=== PATIENT | male | born 1945 | race Caucasian/White ===

== ENCOUNTER 2016-12-16 13:40 | Inpatient (IN) | payer BC ==
--- NOTE | ~2016-12-16 | IDS ---
Interim Discharge Summary [facility] [address] [place]. [address] NAME: ZOË DICKINSON : 43 STATUS : ADM IN PAT#: [id number] AGE: 71 ADM/REG DATE : 12/16/16 MR#: [id number] REPORT SERV DATE: 12/27/16 DICTATED BY: LONG RUTHERFORD DATE: 12/27/16 REPORT STATUS : Draft TRANSCRIBED BY: MODL DATE: 12/27/16 ADMISSION DATE: 12/16/2016 DISCHARGE DATE: Interim summary covers 12/25/2016 through 12/27/2016. CHIEF COMPLAINT ON ADMISSION: Shortness of breath. CURRENT HOSPITAL DIAGNOSES: 1. Acute on chronic diastolic heart failure. 2. Acute on chronic hypoxic and hypercarbic respiratory failure. 3. Urinary tract infection, growing GPCs. 4. Hypokalemia. 5. Anemia. 6. Atrial fibrillation. 7. Hypertension. 8. Diabetes. 9. Obstructive sleep apnea. 10.Obesity hypoventilation syndrome. HISTORY OF PRESENT ILLNESS: Please see full H and P by Dr. Toussaint for details regarding initial presentation. HOSPITAL COURSE: Please see interim summary by Dr. Tawny Torres, after transfer out of the ICU. My care of the patient to go over on 12/25/2016. Since 12/25/2016, we have continued to diurese him with an IV Bumex drip today. We are transitioning to q.6 hours IV Bumex. I am going to give him a dose of metolazone. He has diuresed quite a bit with significant weight loss. I will also discontinue his Wills catheter tomorrow morning, starting him on Rocephin for urine culture positive for GPCs. Physical Therapy has been reconsulted after transfer out of ICU and plan likely to rehab. We will check blood work in the morning to monitor electrolytes as well as CBC to follow his anemia. This has been grossly stable. With regard to his hypertension and his atrial fibrillation, he is currently stable on medications. No medication changes have been made. In regard to his diabetes, I have decreased his morning Levemir. I will follow on current medication dosage. Disposition is likely to rehab once diastolic heart failure has been reasonably diuresed. Pulmonary Medicine has been following. Anticipated discharge date two to three days. DNK/MODL Long Rutherford MD Interim Discharge Summary [address] [address] NAME: ZOË DICKINSON : 43 STATUS : ADM IN PAT#: [id number] AGE: 71 ADM/REG DATE : 12/16/16 MR#: [id number] REPORT SERV DATE: 12/27/16 DICTATED BY: LONG RUTHERFORD DATE: 12/27/16 REPORT STATUS : Draft TRANSCRIBED BY: MODL DATE: 12/27/16 / [id number] CC: MD LESLY Thacker CLIFTON R.
--- NOTE | ~2016-12-16 | IDS ---
Interim Discharge Summary [facility] [address] [place]. [address] NAME: ZOË DICKINSON : 43 STATUS : ADM IN PAT#: [id number] AGE: 71 ADM/REG DATE : 12/16/16 MR#: [id number] REPORT SERV DATE: 12/21/16 DICTATED BY: LING PITTS DATE: 12/21/16 REPORT STATUS : Draft TRANSCRIBED BY: MODL DATE: 12/21/16 ADMISSION DATE: 12/16/2016 DISCHARGE DATE: 12/21/2016 DATE OF TRANSFER TO INTERMEDIATE CARE UNIT: 12/21/2016. BRIEF HISTORY OF PRESENT ILLNESS: Mr. Dickinson is a 71-year-old gentleman admitted for shortness of breath. He has an underlying history of diastolic heart dysfunction, obesity, hypoventilation with hypercapnia due to morbid obesity, obstructive sleep apnea with intermittent compliance on home CPAP as well as diabetes, chronic kidney disease, hypertension, dyslipidemia, and COPD. He presented with weight gain, edema, generalized weakness, and hypercapnic respiratory failure. Evidently, he has been hospitalized in the past for similar symptoms. His x-ray on admission, showed bilateral pulmonary edema and he was admitted to the intensive care unit by Dr. Toussaint for diuresis and oxygen support. Of note, he is on 5 L of supplemental oxygen at home at all times and does wear home CPAP. He does have bronchodilator medicines available at home, but is intermittently compliant with those as well. He was moved to the CV ICU where he was treated with BiPAP and diuresis. Oxygen support was weaned over the next few days, and he clinically improved. ACTIVE PROBLEM LIST: Includes: 1. Acute on chronic hypoxemic and hypercapnic respiratory failure. He is oxygen dependent, around 5 L at home and has home CPAP. He has been wearing a BiPAP at night and intermittently throughout the day, and is back on his home flow rate following diuresis. 2. LEYLA/obesity hypoventilation with chronic hypercapnia. He is a chronic retainer baseline and is morbidly obese. 3. Question of COPD. He is on bronchodilators as well as inhaled budesonide with no evidence of bronchospasm presently. 4. Atrial fibrillation with RVR. He is on Eliquis and is rate controlled around 80 at the moment. 5. Diabetes mellitus. He is on a sliding scale insulin and Levemir. Certainly, weight loss would be beneficial. 6. Chronic kidney disease. His BUN and creatinine are slightly up today at 26 and 1.08. Suspect this is a consequence of diuresis. Continue to monitor and avoid nephrotoxins when possible. 7. Diastolic heart failure with an EF of 55%. He is status post diuresis and we will need to continue that on an as-needed basis to avoid volume overload. 8. Hypertension, controlled. His blood pressure has been running in the 140s today. 9. Chronic anemia. Monitor and avoid excessive phlebotomy. He is a full code. He has morning labs ordered for tomorrow, and he is working with Physical Therapy. We will notify the hospitalist navigator of his transfer to the [facility]. He will be picked up by Dr. Grimes tomorrow morning. Please call with questions. WALI/YUDITH Interim Discharge Summary [address] [address] NAME: ZOË DICKINSON : 43 STATUS : ADM IN [facility]#: [id number] AGE: 71 ADM/REG DATE : 12/16/16 MR#: [id number] REPORT SERV DATE: 12/21/16 DICTATED BY: LING PITTS DATE: 12/21/16 REPORT STATUS : Draft TRANSCRIBED BY: YUDITH DATE: 12/21/16 Ling Pitts MD / [id number] CC: Adithya Toussaint IV, M.D.
--- NOTE | ~2016-12-16 | DS ---
Discharge Summary [facility] [address] [place]. [address] NAME: ZOË DICKINSON : 43 STATUS : DIS IN PAT#: [id number] AGE: 71 ADM/REG DATE : 12/16/16 MR#: [id number] REPORT SERV DATE: 12/30/16 DICTATED BY: DATE: REPORT STATUS : Draft TRANSCRIBED BY: MODL DATE: 12/29/16 ADMISSION DATE: 12/16/2016 DISCHARGE DATE: 12/29/2016 DISCHARGE DIAGNOSES: 1. Wiczg-wp-zseteur diastolic heart failure. 2. Atzpm-ti-jlfxwup hypoxic and hypercarbic respiratory failure. 3. Abnormal urinalysis. 4. Atrial fibrillation. 5. Type 2 diabetes mellitus. 6. Hypertension. 7. Obstructive sleep apnea/obesity hypoventilation syndrome. 8. Mildly elevated creatinine. CONSULTATIONS: Patric Beltran PA-C, Pulmonology. PERTINENT TESTS AND PROCEDURES: 1. Serial chest x-rays obtained daily between the dates of 12/16/2016 and 12/26/2016. 12/16/2016 report indicated recurrent severe failure with marked cardiomegaly compared to 11/27/2016 study. 12/26/2016 report indicated enlarged heart. Vascular congestion with interstitial edema, bilateral effusions. Chest is similar to previous studies. 2. The patient had echocardiogram on 11/26/2016 prior to this admission. At that time, ejection fraction was estimated to be 60%. 3. Blood cultures obtained x2 sites on 12/16/2016 and again on 12/24/2016 x2 sites. Final results no growth at four days. 4. Urine culture, urine collected 12/24/2016, final culture result colony count greater than 100,000, organism #1 Enterococcus faecalis group D, organism #2 methicillin- resistant Staph aureus. Per consult with antibiotic stepan and pharmacy, this likely represents colonization secondary to Wills catheter placed for most of this admission. CHIEF COMPLAINT UPON ADMISSION: Weight gain, weakness, increased peripheral edema with orthopnea. HOSPITAL COURSE: Please refer to history and physical dated 12/10/[address] Adithya Toussaint, for complete details pertaining to the patient's initial presentation upon admission and health history. Also refer to interim discharge summary dated 12/21/[address] Tawny Torres for details covering dates of service between 12/17/2016 and 12/21/2016. Please also refer to interim discharge summary dated 12/27/[address] Stu Rutherford for details pertaining to dates of service between 12/21/2016 and 12/27/2016. Briefly, the patient is a 71-year-old male, who presented to the emergency department on 12/16/2016 with complaints of weight gain, increasing weakness, peripheral edema, and orthopnea. It is noteworthy to mention that the patient was hospitalized in the recent past Discharge Summary [address] [address] NAME: ZOË DICKINSON : 43 STATUS : DIS IN PAT#: [id number] AGE: 71 ADM/REG DATE : 12/16/16 MR#: [id number] REPORT SERV DATE: 12/30/16 DICTATED BY: DATE: REPORT STATUS : Draft TRANSCRIBED BY: MODL DATE: 12/29/16 for similar presentation. Initial evaluation included diagnostic imaging to include chest x-ray, which reported bilateral pulmonary infiltrates with hypercapnia, for which the patient was placed on BiPAP. The patient was initially admitted to the CVICU under the jig grinder service and he was eventually transferred to [facility] and then to [facility] on 12/25/2016. 1. Uajnq-zr-cdpjdkk diastolic heart failure. Upon admission, the patient's weight was reported to be increased from his baseline of 320 pounds to 334 pounds. The patient was aggressively diuresed during this admission and on the day of discharge, the patient's weight was stable at 292 pounds. The patient's most recent echocardiogram was 11/26/2016, in which the ejection fraction was reported to be 60%. The patient is now status post aggressive diuresis and will need to continue home dose of torsemide 20 mg p.o. daily to avoid volume overload. 2. Ldrus-co-cewavpn hypoxic/hypercapnic respiratory failure. The patient is 5 L supplemental O2 dependent at home. Throughout this stay, the patient's respiratory status has returned to baseline and he is maintaining oxygen saturations at or above 90% on chronic 5 L. 3. Obstructive sleep apnea/obesity hypoventilation syndrome. Pulmonology was consulted during this admission. The patient has been home CPAP compliant up until this admission; however, with the recent acute onset of chronic hypoxic respiratory failure, the patient will now require BiPAP every bedtime as CPAP is no longer effective in maintaining his respiratory status. The patient will receive BiPAP therapy once he is transferred and discharge to long-term facility and arrangements have been made for this to continue on an outpatient basis once he is discharged home as well. 4. Abnormal UA. The patient initially had a urinalysis that went to reflex culture which indicated greater than 100,000 colonies of MRSA and Enterococcus faecalis group D. The patient has had a Wills catheter replaced during most of this admission. Wills catheter was removed yesterday and the patient is able to void without difficulty. Antibiotic stepan in pharmacy was contacted regarding positive urine culture and it was recommended that no antibiotic therapy be initiated at this time due to likely colonization. The patient had been initially placed on antibiotic prior to culture resulting; however, after discontinuation of antibiotics the patient has continued to do well with no complaints of dysuria, hematuria, or any other clinical signs or symptoms of infection. 5. Atrial fibrillation with RVR. During this admission, the patient's home dose of carvedilol was increased from 6.25 mg p.o. twice daily to 12.5 mg tablet p.o. twice daily. Cardizem CD 240 mg tablet p.o. daily was also added to the patient's home regimen and should be continued upon discharge. 6. Hypertension. The patient's Cozaar 25 mg p.o. daily was initially discontinued upon admission. The patient is now hemodynamically stable and this medication will be continued on an outpatient basis. 7. Type 2 diabetes mellitus. The patient's home dose of metformin should be restarted upon discharge to long-term facility 1000 mg p.o. twice daily. The patient will also continue receiving Levemir 30 units subcu at bedtime and Levemir 10 units subcu every a.m. 8. Mildly elevated creatinine, this is most likely related to recent aggressive diuresis. BUN and creatinine are reported to be 61 and 1.26 today. The patient will need to have Discharge Summary [address] [address] NAME: ZOË DICKINSON : 43 STATUS : DIS IN PAT#: [id number] AGE: 71 ADM/REG DATE : 12/16/16 MR#: [id number] REPORT SERV DATE: 12/30/16 DICTATED BY: DATE: REPORT STATUS : Draft TRANSCRIBED BY: YUDITH DATE: 12/29/16 lab draw for BMP on Tuesday at [facility] to monitor renal function. DISCHARGE CONDITION: At the time of discharge, the patient is hemodynamically stable. DISCHARGE DIET: 1800 calorie ADA diet. DISCHARGE MEDICATIONS: 1. Eliquis 5 mg tablet p.o. twice daily. 2. Coreg 6.25 mg tablet p.o. twice daily, this has been increased during this admission to 12.5 mg tablet p.o. twice daily and the patient should be discharged on this higher dose and followed up as an outpatient. 3. Cardizem CD 240 mg tablet p.o. daily, this is a new medication initiated during this hospitalization. The patient will need to follow up with street sprinkler upon discharge from long-term [facility]. 4. Neurontin 400 mg tablet p.o. twice daily. 5. Lantus 30 units subcu at bedtime. 6. Imdur 60 units p.o. daily, this is also a new medication added to the patient's home regimen during this admission. This medication does need to be continued and the patient needs outpatient followup visit with Cardiology upon return home from [facility]. 7. Protonix 40 mg tablet p.o. before breakfast. 8. Klor-Con 20 mEq p.o. daily. 9. DuoNeb 0.5/3 mL inhaler inhalation solution, 3 mL inhaled every six hours as needed. 10.Tylenol 650 mg p.o. every 6 hours as needed. 11.Glucophage 1000 mg p.o. twice daily. 12.Ultram 50 mg tablet p.o. three times daily as needed. 13.Cozaar 25 mg tablet p.o. daily. 14.DuoNeb inhalation treatment four times daily as needed. 15.Symbicort two puffs inhaled twice daily, 160/4.5 inhaler. 16.Vitamin D3 1000 units p.o. daily. 17.Vitamin B12 1000 mcg p.o. daily. 18.Vitamin B6 50 mg p.o. daily. 19.Demadex 20 mg tablet p.o. daily. 20.Mag-Ox 40 mg tablet p.o. daily. DISCHARGE INSTRUCTIONS: 1. Upon discharge from long-term facility, the patient will need to follow up with primary care within seven days, Dr. Shoemaker. 2. The patient will need to follow up with Dr. Garcia, Cardiology within three to four weeks of discharge from SNF due to recent uqqce-dm-akmlnlo congestive heart failure and recent medication changes made during hospital admission. 3. The patient will need daily weight and a 2 L fluid restriction and to be monitored very closely for signs and symptoms of volume overload. [facility]/MODL Discharge Summary [place] [address] [place]. [address] NAME: ZOË DICKINSON : 43 STATUS : DIS IN PAT#: [id number] AGE: 71 ADM/REG DATE : 12/16/16 MR#: [id number] REPORT SERV DATE: 12/30/16 DICTATED BY: DATE: REPORT STATUS : Draft TRANSCRIBED BY: YUDITH DATE: 12/29/16 Linda Harris, BUSINESS INTELLIGENCE ANALYST-C / [id number] CC: MD Carrington Garcia II
--- NOTE | ~2016-12-16 | HP ---
History And Physical [place] [address] [place]. [address] NAME: ZOË DICKINSON : 43 STATUS : ADM IN [facility]#: [id number] AGE: 71 ADM/REG DATE : 12/16/16 MR#: [id number] REPORT SERV DATE: 12/17/16 DICTATED BY: ENRIQUE TOUSSAINT IV DATE: 12/16/16 REPORT STATUS : Draft TRANSCRIBED BY: YUDITH DATE: 12/16/16 DATE OF ADMISSION: 12/16/2016 History was obtained from the daughter and from the records. Of note, the notes I made for the initial admission was thrown away by staff in the CV ICU when I left the unit for code and so the history was obtained from my memory. HISTORY OF PRESENT ILLNESS: Mr. Dickinson is a 71-year-old male with a history of diastolic heart dysfunction, obesity hypoventilation syndrome with hypercapnia, obstructive sleep apnea on CPAP, diabetes mellitus, chronic kidney disease, hypertension, elevated cholesterol, and listed COPD, who presents with weight gain, weakness, and hypercapnic respiratory failure. The patient was recently hospitalized in November for similar type symptoms. He had a chest x-ray demonstrating bilateral pulmonary infiltrates with elevated BNP. He had adjustments of his cardiac medications to include his diuretics. The patient reportedly was 320 pounds, at the time of discharge that was 334 pounds just prior to his re presentation. He has been weak at home and has had increased peripheral edema with some orthopnea. He is on 5 L supplemental oxygen at all times. He does have CPAP at nighttime with which he is compliant. He has bronchodilator medications at home with which he is not compliant according to family. He had no cough, sputum production, fevers, chills, sweats, hemoptysis, increased urinary urgency, frequency, nausea, vomiting, or diarrhea. He was more somnolent today for which he was brought to the emergency room. There, he was found to have chest x-ray with bilateral pulmonary infiltrates with hypercapnia for which he was placed on BiPAP. The patient has been hypercapnic on previous presentations though this is above normal. There was no increased self administration of medications to include narcotic medications. The patient carries a diagnosis of obstructive sleep apnea of unclear severity. He is reportedly compliant with the CPAP. He is followed at regular intervals by postal service mail processor in [place], [place]. PULMONARY HISTORY: Remarkable for no history of childhood asthma, known obstructive lung disease to the family or previous pneumonia. He has a one to two pack year smoking history as a teenager, none since. 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 They think he is up to date on his immunizations. PAST MEDICAL HISTORY: 1. Diastolic heart dysfunction. 2. Obesity hypoventilation syndrome. 3. LEYLA on CPAP. 4. Listed COPD. 5. Diabetes mellitus. 6. Chronic kidney disease. 7. Hypertension. 8. Elevated cholesterol. PAST SURGICAL HISTORY: The patient had a TURP, had a cholecystectomy complicated by History And Physical [address] [address] NAME: ZOË DICKINSON : 43 STATUS : ADM IN [facility]#: [id number] AGE: 71 ADM/REG DATE : 12/16/16 MR#: [id number] REPORT SERV DATE: 12/17/16 DICTATED BY: ENRIQUE TOUSSAINT IV DATE: 12/16/16 REPORT STATUS : Draft TRANSCRIBED BY: YUDTIH DATE: 12/16/16 pancreatitis, and had cataract surgery. ALLERGIES: NO KNOWN DRUG ALLERGIES. HOME MEDICATIONS: Include Tylenol 325 mg p.r.n., DuoNebs four times a day, Eliquis 5 mg twice a day, Symbicort two puffs twice a day, Coreg 6.25 mg twice a day, vitamins, Neurontin 800 mg three times a day, Lantus 30 units at bedtime, Cozaar 25 mg daily, magnesium 800 mg daily, Glucophage 1000 mg twice a day, Protonix 40 mg daily, potassium 20 mg daily, vitamin B6 daily, Demadex 20 mg daily, Ultram 50 mg three times a day. SOCIAL HISTORY: Remarkable for the tobacco use. The minimal remote tobacco use as above. There is no history of alcohol or illicit drug use. He is and lives with his daughter. FAMILY HISTORY: Remarkable for mother with breast and stomach cancer. One brother who had pancreatitis of sudden and a father who had heart attack. Several family members have diabetes. REVIEW OF SYSTEMS: 14-systems reviewed and pertinent positives as noted above. PHYSICAL EXAMINATION: GENERAL: This is a morbidly obese, elderly male who is minimally responsive though does open his eyes and follows simple commands. VITAL SIGNS: Temperature is 97.8, respiratory rate is 18, pulse is 84, saturations are 100% on 60% FiO2, blood pressure 107/49. HEENT: The patient is normocephalic, atraumatic. Extraocular movements are intact. Pupils do react to light. On quick look of his mouth, he has a Mallampati 3 airway with narrowing of the posterior pharyngeal space. NECK: Trachea is midline. There is no thyromegaly or adenopathy. CHEST: The patient has decreased breath sounds. There are some bibasilar inspiratory crackles. Expiratory phase does seem slightly prolonged with no wheezes or rhonchi noted. CARDIOVASCULAR: Jugular venous distention is difficult to elicit secondary to body habitus. He has a distant regular S1, S2 with frequent premature beats. There is no clear murmur or S3. Carotid upstrokes are 1+ with no obvious bruit. ABDOMEN: Obese, soft. There are hypoactive bowel sounds. There is no palpable hepatosplenomegaly or masses. EXTREMITIES: Demonstrate chronic venous stasis changes with 2+ edema. There is no cyanosis, clubbing, or cords. NEUROLOGIC: The patient opens eyes to stimulation. Otherwise, he sleeps with the BiPAP. LABORATORY DATA: Chest x-ray has a poor quality film demonstrates increased perihilar infiltrate similar to previous studies on presentation, though more recent films have not been shown to be clear. CBC: Hemoglobin 10.7, hematocrit 36.5, platelet count was 270,000, white blood cell count was 12.9. INR is 1.4. Sodium is 138, potassium 4.7, chloride 94, bicarb 36, BUN 24, creatinine 1.37, glucose of 230, magnesium is 1.6. BNP is 174. Troponin is 0.02. Blood gas shows pH 7.21, pCO2 of 91, pO2 of 132. History And Physical [address] [address] NAME: ZOË DICKINSON : 43 STATUS : ADM IN [facility]#: [id number] AGE: 71 ADM/REG DATE : 12/16/16 MR#: [id number] REPORT SERV DATE: 12/17/16 DICTATED BY: ENRIQUE TOUSSAINT IV DATE: 12/16/16 REPORT STATUS : Draft TRANSCRIBED BY: YUDITH DATE: 12/16/16 ASSESSMENT AND PLAN: 1. Respiratory. The patient does not have a clear risk factor for COPD nor a good history; however, will be continued on bronchodilator medications at this time. BiPAP will be changed to 20/8 with a rate of 10. Blood gas will be obtained in the morning. He can be given breaks off as tolerated. BiPAP will be humidified. Chest x-ray will be obtained in the morning as well. 2. Cardiovascular. Lopressor will be given IV as tolerated 2.5 mg. Hydralazine will be given as needed for elevated blood pressure. I will discontinue the Vasotec and nitroglycerin paste. Bumex will be given 1 g every eight hours x3 doses. Troponin will be checked in the morning. EKG will be obtained which is read as AFib, but it seems to be sinus with multi PACs. 3. Renal. We will replace the patient's magnesium with 2 g. We will check phosphate level. We will check follow creatinine with diuresis. 4. Endocrinologic. Levemir will be given 10 units b.i.d. Insulin sliding scale has been ordered. Thyroid functions will be obtained. A.m. cortisol level will be obtained. 5. Neurologic. Precedex will be given as needed to tolerate the BiPAP. Thiamine will be given 200 mg IV. Neurontin dose will be decreased to 400 mg twice a day. B12 and ammonia level will be obtained. We will hold the patient's tramadol. 6. Hematologic. We will continue the Eliquis if he is awake. Lovenox will be given if not. 7. Gastrointestinal. Protonix will be given 40 mg daily. Clear liquid diet when awake to advance as tolerated. Liver panel will be obtained. 8. Infectious Disease. The patient does not have any symptoms consistent with an infectious process. A procalcitonin level will be obtained. Urinalysis will be obtained. I would not provide empiric antibiotics based on the current findings. The patient will be admitted to the CV ICU under the plant operator/shift supervisor service. I did discuss the findings and plan with the daughter. We also discussed wishes concerning resuscitation status. They wish the father be a full code. NM/MODL Enrique Toussaint IV, M.D. / [id number] CC: Enrique Toussaint IV, M.D.
[2016-12-16 12:55] LABS: INSTRUMENT SERIAL # 8087
[2016-12-16 12:56] LABS: ALLENS TEST Pos; BE (BASE EXCESS) 0.2 MEQ/L (0 +/- 2.5); CARBOXYHEMOGLOBIN 1.3 % (0-3); HCO3 (ACTUAL BICARBONATE) 31.4 MEQ/L (23-27); HEMOBLOGIN CONTENT 11.3 G/DL (14-18); METHEMOGLOBIN 0.3 % (0-3); O2 CONTENT 15.1 VOL% (18-24); PCO2 (CO2 TENSION) 95 MMHG (35-45); PO2 (O2 TENSION) 102 MMHG (79-93); SAMPLE Arterial; pH 7.14 (7.37-7.43)
[2016-12-16 13:31] LABS: BASOPHILS 0.2 %; BASOPHILS ABSOLUTE 0.02 10/3/uL (0.0-0.16); EOSINOPHILS 0.9 %; EOSINOPHILS ABSOLUTE 0.11 10/3/uL (0.0-0.53); HEMATOCRIT 36.5 % (40.0-51.0); HEMOGLOBIN 10.7 g/dL (13.6-17.8); IMMATURE GRANULOCYTES 0.6 %; IMMATURE GRANULOCYTES ABSOLUTE 0.08 10/3/uL (0.0-0.11); LYMPHOCYTES 11.7 %; MANUAL DIFF NO %; MEAN CORPUS HGB CONC 29.3 g/dL (32.0-36.0); MEAN CORPUSCULAR HEMOGLOB 25.3 pg (26.0-34.0); MEAN CORPUSCULAR VOLUME 86.3 fL (80-100); MONOCYTES 6.1 %; MONOCYTES ABSOLUTE 0.78 10/3/uL (0.21-1.20); NEUTROPHILS 80.5 %; NEUTROPHILS ABSOLUTE 10.38 10/3/uL (2.02-8.40); PLATELET COUNT 270 10/3/uL (150-400); RED CELL COUNT 4.23 10/6/uL (4.7-6.1); WHITE BLOOD CELLS 12.9 10/3/uL (4.5-10.5)
[~2016-12-16 13:40] MED LIST: AMARYL2 PO; AMARYL4 PO; B1100 PO; B150 PO; COREG12 PO; COREG6 PO; COZ25 PO; CYANO1000T PO; DEMA20 PO; DUONEB INH; ELIQUIS 5 MG TAB5 MG PO; GLUCOPHAGE1000 MG PO; KLOR-CON M2020 MEQ PO; L40 PO; LANTUS SC; LANTUSCART SC; LEVEMIR SC; MAGOX4 PO; MONODOX100 MG PO; NEUR300 PO; NEUR400 PO; NEUR800 PO; P20 PO; PRILO PO; PRIN10 PO; PRIN20 PO; PROTONIX PO; SYMBICORT 160/41 INH INH; T PO; ULTRAM50 PO; VIT B-SIX 50 MG50 MG PO; VITAMIN B; VITAMIN B-1500 MG PO; VITAMIN B-625 MG OR; VITAMIN B-625 MG PO; VITAMIN D1000 UNI1 PO; VITAMIN D31000 UNIT PO; Z-PAK PO; ZANTAC300 MG PO
[2016-12-16 13:45] LABS: INTERNATIONAL NORMAL RATI 1.4 UNITS (-); PARTIAL THROMBO TIME 32.6 SEC (22.5-37.2); PROTIME (NOT ORD) 16.8 SEC (12.0-14.5)
[2016-12-16 13:47] LABS: ALLENS TEST Pos; BE (BASE EXCESS) 5.5 MEQ/L (0 +/- 2.5); BIPAP 22/8 cm.H2O; CARBOXYHEMOGLOBIN 1.5 % (0-3); HCO3 (ACTUAL BICARBONATE) 35.6 MEQ/L (23-27); HEMOBLOGIN CONTENT 10.8 G/DL (14-18); INSTRUMENT SERIAL # 8087; METHEMOGLOBIN 0.3 % (0-3); O2 CONTENT 14.9 VOL% (18-24); PCO2 (CO2 TENSION) 91 MMHG (35-45); PO2 (O2 TENSION) 132 MMHG (79-93); SAMPLE Arterial; pH 7.21 (7.37-7.43)
[2016-12-16 13:52] LABS: BUN (BLOOD UREA NITROGEN) 24 MG/DL (6-23); CALCIUM, SERUM 8.5 MG/DL (8.5-10.4); CHEST PAIN PROFILE TAT 0 Hrs 27 Mins; CHLORIDE, SERUM 94 MMOL/L (96-112); CO2 (CARBON DIOXIDE) 36 MMOL/L (24-34); CREATININE 1.37 MG/DL (0.70-1.30); GFR AFRICAN AMERICAN 59 ML/MIN (>=60); GFR NON AFRICAN AMERICAN 51 ML/MIN (>=60); GLUCOSE, SERUM 230 MG/DL (60-99); POTASSIUM, SERUM 4.7 MMOL/L (3.5-5.3); SODIUM, SERUM 138 MMOL/L (135-148); TROPONIN I <0.02 NG/ML (<0.05)
[2016-12-16 21:53] LABS: WBC (NOT ORDERED) (RFLEX) 0 (0-5)
[2016-12-16 21:56] LABS: PROCALCITONIN 0.06 ng/mL (<0.5)
[2016-12-16 22:11] LABS: ASCORBIC ACID (UR NOT ORDER) NEG (NEG); BILIRUBIN, URINE NEGATIVE (NEG); KETONE, URINE NEGATIVE (NEG); LEUKOCYTE ESTERASE(NOT OR NEG (NEG)
[2016-12-16 22:25] LABS: AMPHETAMINES (NOT ORD) NEG (NEG); BARBITURATES (NOT ORDERED NEG (NEG); BENZODIAZEPINES (NOT ORD) NEG (NEG); CANNABINOIDS (THC) NEG (NEG); COCAINE (NOT ORDERED) NEG (NEG); OPIATES NEG (NEG); PHENCYCLIDINE(PCP) NEG (NEG); TRICYCLICS NEG (NEG)
[2016-12-16 22:34] LABS: FREE T4 1.21 NG/DL (0.76-1.46); PHOSPHORUS, SERUM 4.6 MG/DL (2.5-4.5)
[2016-12-16 22:36] LABS: FOLATE 18.3 NG/ML (>5.2)
[2016-12-17 04:41] LABS: BE (BASE EXCESS) 10.2 MEQ/L (0 +/- 2.5); CARBOXYHEMOGLOBIN 0.7 % (0-3); HCO3 (ACTUAL BICARBONATE) 37.7 MEQ/L (23-27); HEMOBLOGIN CONTENT 10.2 G/DL (14-18); INSTRUMENT SERIAL # 11843; METHEMOGLOBIN 0.5 % (0-3); O2 CONTENT 12.7 VOL% (18-24); PCO2 (CO2 TENSION) 69 MMHG (35-45); PO2 (O2 TENSION) 61 MMHG (79-93); pH 7.36 (7.37-7.43)
[2016-12-17 04:42] LABS: ALLENS TEST Pos; BIPAP 20/8 cm.H2O; OPERATOR ID 32193; SAMPLE Arterial
[2016-12-17 04:46] LABS: BASOPHILS 0.1 %; BASOPHILS ABSOLUTE 0.01 10/3/uL (0.0-0.16); EOSINOPHILS 1.5 %; EOSINOPHILS ABSOLUTE 0.14 10/3/uL (0.0-0.53); HEMOGLOBIN 8.8 g/dL (13.6-17.8); IMMATURE GRANULOCYTES 0.1 %; IMMATURE GRANULOCYTES ABSOLUTE 0.01 10/3/uL (0.0-0.11); LYMPHOCYTES 13.1 %; LYMPHOCYTES ABSOLUTE 1.19 10/3/uL (0.67-4.30); MEAN CORPUS HGB CONC 29.1 g/dL (32.0-36.0); MEAN CORPUSCULAR HEMOGLOB 24.2 pg (26.0-34.0); MEAN PLATELET VOLUME 9.8 fL (9.2-13.0); MONOCYTES 10.9 %; MONOCYTES ABSOLUTE 0.99 10/3/uL (0.21-1.20); NEUTROPHILS 74.3 %; NEUTROPHILS ABSOLUTE 6.74 10/3/uL (2.02-8.40); PLATELET COUNT 210 10/3/uL (150-400); RBC DISTRIBUTION WIDTH 17.2 % (12.0-16.0); RED CELL COUNT 3.63 10/6/uL (4.7-6.1); WHITE BLOOD CELLS 9.1 10/3/uL (4.5-10.5)
[2016-12-17 04:51] LABS: HEMATOCRIT 30.2 % (40.0-51.0); MANUAL DIFF NO %; MEAN CORPUSCULAR VOLUME 83.2 fL (80-100)
[2016-12-17 04:57] LABS: ALBUMIN 2.9 G/DL (3.5-5.0); BUN (BLOOD UREA NITROGEN) 27 MG/DL (6-23); CALCIUM, SERUM 8.4 MG/DL (8.5-10.4); CHLORIDE, SERUM 97 MMOL/L (96-112); CO2 (CARBON DIOXIDE) 37 MMOL/L (24-34); CREATININE 1.35 MG/DL (0.70-1.30); DIRECT BILIRUBIN 0.2 MG/DL (0.0-0.4); GFR AFRICAN AMERICAN 60 ML/MIN (>=60); GFR NON AFRICAN AMERICAN 52 ML/MIN (>=60); INDIRECT BILIRUBIN(NOT ORDER) 0.6 MG/DL (0.1-0.9); POTASSIUM, SERUM 4.1 MMOL/L (3.5-5.3); SGOT(AST) 16 U/L (5-40); SGPT(ALT) 21 U/L (5-65); SODIUM, SERUM 141 MMOL/L (135-148); TOTAL BILIRUBIN 0.8 MG/DL (0-1.2); TOTAL PROTEIN 6.5 G/DL (6.0-8.5)
[2016-12-17 05:01] LABS: ALLENS TEST Pos; BE (BASE EXCESS) 8.7 MEQ/L (0 +/- 2.5); BIPAP 20/8 cm.H2O; CARBOXYHEMOGLOBIN 0.6 % (0-3); HEMOBLOGIN CONTENT 9.9 G/DL (14-18); INSTRUMENT SERIAL # 11843; METHEMOGLOBIN 0.6 % (0-3); O2 CONTENT 13.1 VOL% (18-24); OPERATOR ID 32193; PCO2 (CO2 TENSION) 67 MMHG (35-45); PO2 (O2 TENSION) 84 MMHG (79-93); SAMPLE Arterial; pH 7.35 (7.37-7.43)
[2016-12-17 05:06] LABS: ALKALINE PHOSPHATASE 69 U/L (45-117); GLUCOSE, SERUM 41 MG/DL (60-99)
[2016-12-18 04:16] LABS: BASOPHILS 0.1 %; BASOPHILS ABSOLUTE 0.01 10/3/uL (0.0-0.16); EOSINOPHILS 2.1 %; EOSINOPHILS ABSOLUTE 0.19 10/3/uL (0.0-0.53); HEMOGLOBIN 9.1 g/dL (13.6-17.8); IMMATURE GRANULOCYTES 0.2 %; IMMATURE GRANULOCYTES ABSOLUTE 0.02 10/3/uL (0.0-0.11); LYMPHOCYTES 14.1 %; LYMPHOCYTES ABSOLUTE 1.28 10/3/uL (0.67-4.30); MEAN CORPUS HGB CONC 29.4 g/dL (32.0-36.0); MEAN CORPUSCULAR HEMOGLOB 24.4 pg (26.0-34.0); MEAN CORPUSCULAR VOLUME 83.1 fL (80-100); MEAN PLATELET VOLUME 10.1 fL (9.2-13.0); MONOCYTES 7.6 %; MONOCYTES ABSOLUTE 0.69 10/3/uL (0.21-1.20); NEUTROPHILS 75.9 %; PLATELET COUNT 222 10/3/uL (150-400); RED CELL COUNT 3.73 10/6/uL (4.7-6.1); WHITE BLOOD CELLS 9.1 10/3/uL (4.5-10.5)
[2016-12-18 04:17] LABS: MANUAL DIFF NO %
[2016-12-18 04:18] LABS: BUN (BLOOD UREA NITROGEN) 29 MG/DL (6-23); CALCIUM, SERUM 8.7 MG/DL (8.5-10.4); CHLORIDE, SERUM 96 MMOL/L (96-112); CO2 (CARBON DIOXIDE) 36 MMOL/L (24-34); GFR AFRICAN AMERICAN 77 ML/MIN (>=60); GFR NON AFRICAN AMERICAN 67 ML/MIN (>=60); POTASSIUM, SERUM 4.4 MMOL/L (3.5-5.3); SODIUM, SERUM 139 MMOL/L (135-148)
[2016-12-18 04:19] LABS: GLUCOSE, SERUM 153 MG/DL (60-99); PHOSPHORUS, SERUM 2.7 MG/DL (2.5-4.5)
[2016-12-18 11:44] LABS: CALCIUM, SERUM 9.2 MG/DL (8.5-10.4); CHLORIDE, SERUM 93 MMOL/L (96-112); CO2 (CARBON DIOXIDE) 37 MMOL/L (24-34); CREATININE 1.04 MG/DL (0.70-1.30); GFR AFRICAN AMERICAN 83 ML/MIN (>=60); GFR NON AFRICAN AMERICAN 71 ML/MIN (>=60); POTASSIUM, SERUM 4.3 MMOL/L (3.5-5.3); SODIUM, SERUM 138 MMOL/L (135-148)
[2016-12-18 11:48] LABS: BUN (BLOOD UREA NITROGEN) 25 MG/DL (6-23); GLUCOSE, SERUM 253 MG/DL (60-99)
[2016-12-19 04:22] LABS: BASOPHILS 0.1 %; BASOPHILS ABSOLUTE 0.01 10/3/uL (0.0-0.16); EOSINOPHILS 1.3 %; EOSINOPHILS ABSOLUTE 0.12 10/3/uL (0.0-0.53); HEMATOCRIT 31.4 % (40.0-51.0); HEMOGLOBIN 9.5 g/dL (13.6-17.8); IMMATURE GRANULOCYTES 0.3 %; IMMATURE GRANULOCYTES ABSOLUTE 0.03 10/3/uL (0.0-0.11); LYMPHOCYTES 11.6 %; LYMPHOCYTES ABSOLUTE 1.05 10/3/uL (0.67-4.30); MEAN CORPUS HGB CONC 30.3 g/dL (32.0-36.0); MEAN CORPUSCULAR HEMOGLOB 25.3 pg (26.0-34.0); MEAN CORPUSCULAR VOLUME 83.7 fL (80-100); MEAN PLATELET VOLUME 10.1 fL (9.2-13.0); MONOCYTES 7.4 %; MONOCYTES ABSOLUTE 0.67 10/3/uL (0.21-1.20); NEUTROPHILS 79.3 %; NEUTROPHILS ABSOLUTE 7.14 10/3/uL (2.02-8.40); PLATELET COUNT 232 10/3/uL (150-400); RBC DISTRIBUTION WIDTH 17.2 % (12.0-16.0); RED CELL COUNT 3.75 10/6/uL (4.7-6.1)
[2016-12-19 04:25] LABS: MANUAL DIFF NO %
[2016-12-19 04:26] LABS: BUN (BLOOD UREA NITROGEN) 23 MG/DL (6-23); CALCIUM, SERUM 8.8 MG/DL (8.5-10.4); CHLORIDE, SERUM 95 MMOL/L (96-112); CO2 (CARBON DIOXIDE) 37 MMOL/L (24-34); CREATININE 0.84 MG/DL (0.70-1.30); GFR AFRICAN AMERICAN 101 ML/MIN (>=60); GFR NON AFRICAN AMERICAN 87 ML/MIN (>=60); POTASSIUM, SERUM 3.9 MMOL/L (3.5-5.3); SODIUM, SERUM 139 MMOL/L (135-148)
[2016-12-19 04:27] LABS: GLUCOSE, SERUM 167 MG/DL (60-99)
[2016-12-20 04:44] LABS: BASOPHILS 0.2 %; BASOPHILS ABSOLUTE 0.02 10/3/uL (0.0-0.16); EOSINOPHILS 2.4 %; EOSINOPHILS ABSOLUTE 0.26 10/3/uL (0.0-0.53); HEMATOCRIT 33.6 % (40.0-51.0); HEMOGLOBIN 10.1 g/dL (13.6-17.8); IMMATURE GRANULOCYTES 0.3 %; IMMATURE GRANULOCYTES ABSOLUTE 0.03 10/3/uL (0.0-0.11); LYMPHOCYTES 12.9 %; LYMPHOCYTES ABSOLUTE 1.41 10/3/uL (0.67-4.30); MEAN CORPUS HGB CONC 30.1 g/dL (32.0-36.0); MEAN CORPUSCULAR HEMOGLOB 25.4 pg (26.0-34.0); MEAN CORPUSCULAR VOLUME 84.4 fL (80-100); MEAN PLATELET VOLUME 9.7 fL (9.2-13.0); NEUTROPHILS 74.2 %; NEUTROPHILS ABSOLUTE 8.15 10/3/uL (2.02-8.40); PLATELET COUNT 237 10/3/uL (150-400); RBC DISTRIBUTION WIDTH 16.9 % (12.0-16.0); RED CELL COUNT 3.98 10/6/uL (4.7-6.1)
[2016-12-20 04:49] LABS: MANUAL DIFF NO %
[2016-12-20 04:59] LABS: BUN (BLOOD UREA NITROGEN) 26 MG/DL (6-23); CALCIUM, SERUM 9.2 MG/DL (8.5-10.4); CHLORIDE, SERUM 92 MMOL/L (96-112); CO2 (CARBON DIOXIDE) 38 MMOL/L (24-34); CREATININE 0.89 MG/DL (0.70-1.30); GFR AFRICAN AMERICAN 99 ML/MIN (>=60); GFR NON AFRICAN AMERICAN 85 ML/MIN (>=60); GLUCOSE, SERUM 156 MG/DL (60-99); POTASSIUM, SERUM 4.2 MMOL/L (3.5-5.3); SODIUM, SERUM 136 MMOL/L (135-148)
[2016-12-20 15:42] LABS: ASCORBIC ACID (UR NOT ORDER) NEG (NEG); BILIRUBIN, URINE NEGATIVE (NEG); KETONE, URINE NEGATIVE (NEG); LEUKOCYTE ESTERASE(NOT OR MOD (NEG); WBC (NOT ORDERED) (RFLEX) 3 (0-5)
[2016-12-21 03:25] LABS: ALLENS TEST Pos; BE (BASE EXCESS) 11.4 MEQ/L (0 +/- 2.5); BIPAP 20/8 cm.H2O; CARBOXYHEMOGLOBIN 0.6 % (0-3); HCO3 (ACTUAL BICARBONATE) 38.8 MEQ/L (23-27); HEMOBLOGIN CONTENT 10.5 G/DL (14-18); INSTRUMENT SERIAL # 11843; METHEMOGLOBIN 0.5 % (0-3); O2 CONTENT 13.7 VOL% (18-24); OPERATOR ID 17370; PCO2 (CO2 TENSION) 68 MMHG (35-45); PO2 (O2 TENSION) 74 MMHG (79-93); SAMPLE Arterial; pH 7.37 (7.37-7.43)
[2016-12-21 04:11] LABS: HEMATOCRIT 31.4 % (40.0-51.0); HEMOGLOBIN 9.4 g/dL (13.6-17.8); MEAN CORPUS HGB CONC 29.9 g/dL (32.0-36.0); MEAN CORPUSCULAR HEMOGLOB 25.2 pg (26.0-34.0); MEAN CORPUSCULAR VOLUME 84.2 fL (80-100); PLATELET COUNT 232 10/3/uL (150-400); RBC DISTRIBUTION WIDTH 16.9 % (12.0-16.0); RED CELL COUNT 3.73 10/6/uL (4.7-6.1); WHITE BLOOD CELLS 9.2 10/3/uL (4.5-10.5)
[2016-12-21 04:12] LABS: MANUAL DIFF YES %
[2016-12-21 04:18] LABS: BUN (BLOOD UREA NITROGEN) 26 MG/DL (6-23); CALCIUM, SERUM 8.8 MG/DL (8.5-10.4); CHLORIDE, SERUM 92 MMOL/L (96-112); CO2 (CARBON DIOXIDE) 38 MMOL/L (24-34); CREATININE 1.08 MG/DL (0.70-1.30); GFR AFRICAN AMERICAN 79 ML/MIN (>=60); GFR NON AFRICAN AMERICAN 68 ML/MIN (>=60); GLUCOSE, SERUM 159 MG/DL (60-99); POTASSIUM, SERUM 3.9 MMOL/L (3.5-5.3); SODIUM, SERUM 138 MMOL/L (135-148)
[2016-12-21 04:24] LABS: PHOSPHORUS, SERUM 3.7 MG/DL (2.5-4.5)
[2016-12-21 04:39] LABS: HYPOCHROMIA 1+ (3-10/OIF) (0-2/OIF); LYMPHOCYTES 16 %; LYMPHOCYTES ABSOLUTE (CALC) 1.47 10/3/uL (0.67-4.30); MONOCYTES 10 %; MONOCYTES ABSOLUTE (CALC) 0.92 10/3/uL (0.21-1.20); NEUTROPHILS ABSOLUTE (CALC) 6.81 10/3/uL (2.02-8.40); PLATELET ESTIMATE ADQ (ADEQUATE); SEGMENTED NEUTROPHIL (0) 74 %; TOTAL NUCLEATED CELLS 100
[2016-12-21 15:07] LABS: HEMATOCRIT 32.8 % (40.0-51.0); HEMOGLOBIN 9.8 g/dL (13.6-17.8)
[2016-12-22 05:50] LABS: BASOPHILS 0.1 %; BASOPHILS ABSOLUTE 0.01 10/3/uL (0.0-0.16); EOSINOPHILS 2.4 %; EOSINOPHILS ABSOLUTE 0.22 10/3/uL (0.0-0.53); HEMATOCRIT 31.4 % (40.0-51.0); HEMOGLOBIN 9.5 g/dL (13.6-17.8); IMMATURE GRANULOCYTES 0.3 %; IMMATURE GRANULOCYTES ABSOLUTE 0.03 10/3/uL (0.0-0.11); LYMPHOCYTES 13.9 %; LYMPHOCYTES ABSOLUTE 1.27 10/3/uL (0.67-4.30); MEAN CORPUS HGB CONC 30.3 g/dL (32.0-36.0); MEAN CORPUSCULAR HEMOGLOB 25.3 pg (26.0-34.0); MEAN CORPUSCULAR VOLUME 83.7 fL (80-100); MEAN PLATELET VOLUME 9.4 fL (9.2-13.0); MONOCYTES 10.4 %; MONOCYTES ABSOLUTE 0.95 10/3/uL (0.21-1.20); NEUTROPHILS 72.9 %; NEUTROPHILS ABSOLUTE 6.63 10/3/uL (2.02-8.40); PLATELET COUNT 195 10/3/uL (150-400); RED CELL COUNT 3.75 10/6/uL (4.7-6.1); WHITE BLOOD CELLS 9.1 10/3/uL (4.5-10.5)
[2016-12-22 05:51] LABS: MANUAL DIFF NO %
[2016-12-22 06:02] LABS: ALBUMIN 3.4 G/DL (3.5-5.0); BUN (BLOOD UREA NITROGEN) 25 MG/DL (6-23); CHLORIDE, SERUM 95 MMOL/L (96-112); CO2 (CARBON DIOXIDE) 37 MMOL/L (24-34); GFR AFRICAN AMERICAN 87 ML/MIN (>=60); GFR NON AFRICAN AMERICAN 75 ML/MIN (>=60); GLUCOSE, SERUM 147 MG/DL (60-99); PHOSPHORUS, SERUM 3.5 MG/DL (2.5-4.5); POTASSIUM, SERUM 3.6 MMOL/L (3.5-5.3); SODIUM, SERUM 138 MMOL/L (135-148)
[2016-12-23 06:07] LABS: BASOPHILS 0.2 %; BASOPHILS ABSOLUTE 0.02 10/3/uL (0.0-0.16); EOSINOPHILS 1.9 %; EOSINOPHILS ABSOLUTE 0.19 10/3/uL (0.0-0.53); HEMOGLOBIN 9.1 g/dL (13.6-17.8); IMMATURE GRANULOCYTES 0.3 %; IMMATURE GRANULOCYTES ABSOLUTE 0.03 10/3/uL (0.0-0.11); LYMPHOCYTES 10.1 %; MEAN CORPUS HGB CONC 30.3 g/dL (32.0-36.0); MEAN CORPUSCULAR HEMOGLOB 24.6 pg (26.0-34.0); MEAN PLATELET VOLUME 9.9 fL (9.2-13.0); MONOCYTES 10.5 %; MONOCYTES ABSOLUTE 1.04 10/3/uL (0.21-1.20); NEUTROPHILS ABSOLUTE 7.64 10/3/uL (2.02-8.40); PLATELET COUNT 204 10/3/uL (150-400); WHITE BLOOD CELLS 9.9 10/3/uL (4.5-10.5)
[2016-12-23 06:17] LABS: MANUAL DIFF NO %; MEAN CORPUSCULAR VOLUME 81.1 fL (80-100)
[2016-12-23 06:19] LABS: BUN (BLOOD UREA NITROGEN) 24 MG/DL (6-23); CALCIUM, SERUM 8.8 MG/DL (8.5-10.4); CHLORIDE, SERUM 94 MMOL/L (96-112); CO2 (CARBON DIOXIDE) 32 MMOL/L (24-34); CREATININE 0.89 MG/DL (0.70-1.30); GFR AFRICAN AMERICAN 99 ML/MIN (>=60); GFR NON AFRICAN AMERICAN 85 ML/MIN (>=60); GLUCOSE, SERUM 186 MG/DL (60-99); PHOSPHORUS, SERUM 3.6 MG/DL (2.5-4.5); POTASSIUM, SERUM 4.1 MMOL/L (3.5-5.3); SODIUM, SERUM 137 MMOL/L (135-148)
[2016-12-23 11:12] LABS: BE (BASE EXCESS) 9.6 MEQ/L (0 +/- 2.5); BIPAP 20/8 cm.H2O; CARBOXYHEMOGLOBIN 0.5 % (0-3); HEMOBLOGIN CONTENT 10.9 G/DL (14-18); INSTRUMENT SERIAL # 35151; METHEMOGLOBIN 0.6 % (0-3); O2 CONTENT 14.8 VOL% (18-24); PCO2 (CO2 TENSION) 58 MMHG (35-45); PO2 (O2 TENSION) 93 MMHG (79-93); SAMPLE Arterial; pH 7.41 (7.37-7.43)
[2016-12-24 04:40] LABS: BUN (BLOOD UREA NITROGEN) 25 MG/DL (6-23); CHLORIDE, SERUM 92 MMOL/L (96-112); CREATININE 1.05 MG/DL (0.70-1.30); GFR AFRICAN AMERICAN 82 ML/MIN (>=60); GFR NON AFRICAN AMERICAN 71 ML/MIN (>=60); PHOSPHORUS, SERUM 3.5 MG/DL (2.5-4.5); POTASSIUM, SERUM 3.6 MMOL/L (3.5-5.3); SODIUM, SERUM 139 MMOL/L (135-148)
[2016-12-24 04:43] LABS: CO2 (CARBON DIOXIDE) 37 MMOL/L (24-34); GLUCOSE, SERUM 142 MG/DL (60-99)
[2016-12-24 05:22] LABS: BASOPHILS 0.2 %; BASOPHILS ABSOLUTE 0.03 10/3/uL (0.0-0.16); EOSINOPHILS 0.6 %; EOSINOPHILS ABSOLUTE 0.11 10/3/uL (0.0-0.53); HEMOGLOBIN 10.3 g/dL (13.6-17.8); IMMATURE GRANULOCYTES 0.4 %; IMMATURE GRANULOCYTES ABSOLUTE 0.07 10/3/uL (0.0-0.11); LYMPHOCYTES 8.3 %; LYMPHOCYTES ABSOLUTE 1.46 10/3/uL (0.67-4.30); MEAN CORPUS HGB CONC 29.8 g/dL (32.0-36.0); MEAN CORPUSCULAR HEMOGLOB 25.1 pg (26.0-34.0); MONOCYTES ABSOLUTE 0.88 10/3/uL (0.21-1.20); NEUTROPHILS 85.5 %; NEUTROPHILS ABSOLUTE 14.99 10/3/uL (2.02-8.40); NUCLEATED RED BLOOD CELLS 0.2 /100WBC (0-0); PLATELET COUNT 240 10/3/uL (150-400); RBC DISTRIBUTION WIDTH 16.9 % (12.0-16.0); RED CELL COUNT 4.11 10/6/uL (4.7-6.1)
[2016-12-24 05:31] LABS: HEMATOCRIT 34.6 % (40.0-51.0); MANUAL DIFF NO %; MEAN CORPUSCULAR VOLUME 84.2 fL (80-100); WHITE BLOOD CELLS 17.5 10/3/uL (4.5-10.5)
[2016-12-24 20:21] LABS: ASCORBIC ACID (UR NOT ORDER) NEG (NEG); BILIRUBIN, URINE NEGATIVE (NEG); KETONE, URINE NEGATIVE (NEG); LEUKOCYTE ESTERASE(NOT OR LARGE (NEG); WBC (NOT ORDERED) (RFLEX) 42 (0-5)
[2016-12-25 05:17] LABS: BASOPHILS 0.1 %; BASOPHILS ABSOLUTE 0.02 10/3/uL (0.0-0.16); EOSINOPHILS 1.1 %; EOSINOPHILS ABSOLUTE 0.17 10/3/uL (0.0-0.53); HEMATOCRIT 32.5 % (40.0-51.0); HEMOGLOBIN 9.8 g/dL (13.6-17.8); IMMATURE GRANULOCYTES 0.3 %; IMMATURE GRANULOCYTES ABSOLUTE 0.05 10/3/uL (0.0-0.11); LYMPHOCYTES 7.6 %; LYMPHOCYTES ABSOLUTE 1.13 10/3/uL (0.67-4.30); MEAN CORPUS HGB CONC 30.2 g/dL (32.0-36.0); MEAN CORPUSCULAR HEMOGLOB 25.4 pg (26.0-34.0); MEAN CORPUSCULAR VOLUME 84.2 fL (80-100); MEAN PLATELET VOLUME 10.3 fL (9.2-13.0); MONOCYTES 10.2 %; MONOCYTES ABSOLUTE 1.51 10/3/uL (0.21-1.20); NEUTROPHILS 80.7 %; NEUTROPHILS ABSOLUTE 11.99 10/3/uL (2.02-8.40); PLATELET COUNT 232 10/3/uL (150-400); RBC DISTRIBUTION WIDTH 16.7 % (12.0-16.0); RED CELL COUNT 3.86 10/6/uL (4.7-6.1); WHITE BLOOD CELLS 14.9 10/3/uL (4.5-10.5)
[2016-12-25 05:19] LABS: MANUAL DIFF NO %
[2016-12-25 05:33] LABS: BUN (BLOOD UREA NITROGEN) 30 MG/DL (6-23); CALCIUM, SERUM 8.6 MG/DL (8.5-10.4); CHLORIDE, SERUM 91 MMOL/L (96-112); CO2 (CARBON DIOXIDE) 40 MMOL/L (24-34); CREATININE 1.13 MG/DL (0.70-1.30); GFR AFRICAN AMERICAN 75 ML/MIN (>=60); GFR NON AFRICAN AMERICAN 65 ML/MIN (>=60); GLUCOSE, SERUM 135 MG/DL (60-99); PHOSPHORUS, SERUM 4.2 MG/DL (2.5-4.5); POTASSIUM, SERUM 3.5 MMOL/L (3.5-5.3); SODIUM, SERUM 139 MMOL/L (135-148)
[2016-12-26 04:36] LABS: BASOPHILS 0.1 %; BASOPHILS ABSOLUTE 0.02 10/3/uL (0.0-0.16); EOSINOPHILS 1.6 %; EOSINOPHILS ABSOLUTE 0.25 10/3/uL (0.0-0.53); HEMATOCRIT 35.2 % (40.0-51.0); HEMOGLOBIN 10.8 g/dL (13.6-17.8); IMMATURE GRANULOCYTES 0.3 %; IMMATURE GRANULOCYTES ABSOLUTE 0.05 10/3/uL (0.0-0.11); LYMPHOCYTES 8.5 %; LYMPHOCYTES ABSOLUTE 1.31 10/3/uL (0.67-4.30); MEAN CORPUS HGB CONC 30.7 g/dL (32.0-36.0); MEAN CORPUSCULAR HEMOGLOB 25.7 pg (26.0-34.0); MEAN CORPUSCULAR VOLUME 83.6 fL (80-100); MEAN PLATELET VOLUME 9.9 fL (9.2-13.0); MONOCYTES ABSOLUTE 1.39 10/3/uL (0.21-1.20); NEUTROPHILS 80.5 %; NEUTROPHILS ABSOLUTE 12.35 10/3/uL (2.02-8.40); PLATELET COUNT 223 10/3/uL (150-400); RBC DISTRIBUTION WIDTH 16.4 % (12.0-16.0); RED CELL COUNT 4.21 10/6/uL (4.7-6.1); WHITE BLOOD CELLS 15.4 10/3/uL (4.5-10.5)
[2016-12-26 04:37] LABS: MANUAL DIFF NO %
[2016-12-26 04:50] LABS: CALCIUM, SERUM 8.8 MG/DL (8.5-10.4); CHLORIDE, SERUM 91 MMOL/L (96-112); CO2 (CARBON DIOXIDE) 40 MMOL/L (24-34); CREATININE 1.08 MG/DL (0.70-1.30); GFR AFRICAN AMERICAN 79 ML/MIN (>=60); GFR NON AFRICAN AMERICAN 68 ML/MIN (>=60); POTASSIUM, SERUM 3.5 MMOL/L (3.5-5.3); SODIUM, SERUM 140 MMOL/L (135-148)
[2016-12-26 04:52] LABS: BUN (BLOOD UREA NITROGEN) 36 MG/DL (6-23); GLUCOSE, SERUM 84 MG/DL (60-99)
[2016-12-27 12:22] LABS: BUN (BLOOD UREA NITROGEN) 53 MG/DL (6-23); CALCIUM, SERUM 9.1 MG/DL (8.5-10.4); CHLORIDE, SERUM 90 MMOL/L (96-112); CO2 (CARBON DIOXIDE) 39 MMOL/L (24-34); CREATININE 1.29 MG/DL (0.70-1.30); GFR AFRICAN AMERICAN 64 ML/MIN (>=60); GFR NON AFRICAN AMERICAN 55 ML/MIN (>=60); GLUCOSE, SERUM 220 MG/DL (60-99); POTASSIUM, SERUM 4.4 MMOL/L (3.5-5.3); SODIUM, SERUM 137 MMOL/L (135-148)
[2016-12-28 03:49] LABS: BASOPHILS 0.1 %; BASOPHILS ABSOLUTE 0.02 10/3/uL (0.0-0.16); EOSINOPHILS 3.1 %; EOSINOPHILS ABSOLUTE 0.42 10/3/uL (0.0-0.53); HEMATOCRIT 35.6 % (40.0-51.0); HEMOGLOBIN 10.9 g/dL (13.6-17.8); IMMATURE GRANULOCYTES 0.5 %; IMMATURE GRANULOCYTES ABSOLUTE 0.07 10/3/uL (0.0-0.11); LYMPHOCYTES 11.8 %; LYMPHOCYTES ABSOLUTE 1.61 10/3/uL (0.67-4.30); MEAN CORPUS HGB CONC 30.6 g/dL (32.0-36.0); MEAN CORPUSCULAR HEMOGLOB 25.2 pg (26.0-34.0); MEAN CORPUSCULAR VOLUME 82.2 fL (80-100); MEAN PLATELET VOLUME 9.8 fL (9.2-13.0); MONOCYTES 10.2 %; MONOCYTES ABSOLUTE 1.39 10/3/uL (0.21-1.20); NEUTROPHILS 74.3 %; NEUTROPHILS ABSOLUTE 10.17 10/3/uL (2.02-8.40); PLATELET COUNT 236 10/3/uL (150-400); RBC DISTRIBUTION WIDTH 15.9 % (12.0-16.0); RED CELL COUNT 4.33 10/6/uL (4.7-6.1); WHITE BLOOD CELLS 13.7 10/3/uL (4.5-10.5)
[2016-12-28 03:52] LABS: MANUAL DIFF NO %
[2016-12-28 04:16] LABS: ALBUMIN 3.1 G/DL (3.5-5.0); CHLORIDE, SERUM 88 MMOL/L (96-112); CREATININE 1.29 MG/DL (0.70-1.30); GFR AFRICAN AMERICAN 64 ML/MIN (>=60); GFR NON AFRICAN AMERICAN 55 ML/MIN (>=60); PHOSPHORUS, SERUM 4.5 MG/DL (2.5-4.5); SODIUM, SERUM 138 MMOL/L (135-148)
[2016-12-28 04:32] LABS: BUN (BLOOD UREA NITROGEN) 58 MG/DL (6-23); CO2 (CARBON DIOXIDE) 44 MMOL/L (24-34); GLUCOSE, SERUM 144 MG/DL (60-99); POTASSIUM, SERUM 3.4 MMOL/L (3.5-5.3)
[2016-12-29 05:16] LABS: BASOPHILS 0.2 %; BASOPHILS ABSOLUTE 0.02 10/3/uL (0.0-0.16); EOSINOPHILS ABSOLUTE 0.35 10/3/uL (0.0-0.53); HEMATOCRIT 37.8 % (40.0-51.0); HEMOGLOBIN 11.4 g/dL (13.6-17.8); IMMATURE GRANULOCYTES 0.8 %; IMMATURE GRANULOCYTES ABSOLUTE 0.09 10/3/uL (0.0-0.11); LYMPHOCYTES 11.8 %; LYMPHOCYTES ABSOLUTE 1.39 10/3/uL (0.67-4.30); MEAN CORPUS HGB CONC 30.2 g/dL (32.0-36.0); MEAN CORPUSCULAR VOLUME 82.9 fL (80-100); MONOCYTES ABSOLUTE 1.06 10/3/uL (0.21-1.20); NEUTROPHILS 75.2 %; NEUTROPHILS ABSOLUTE 8.86 10/3/uL (2.02-8.40); PLATELET COUNT 237 10/3/uL (150-400); RBC DISTRIBUTION WIDTH 15.8 % (12.0-16.0); RED CELL COUNT 4.56 10/6/uL (4.7-6.1); WHITE BLOOD CELLS 11.8 10/3/uL (4.5-10.5)
[2016-12-29 05:17] LABS: MANUAL DIFF NO %
[2016-12-29 05:39] LABS: BUN (BLOOD UREA NITROGEN) 61 MG/DL (6-23); CALCIUM, SERUM 9.3 MG/DL (8.5-10.4); CHLORIDE, SERUM 85 MMOL/L (96-112); CREATININE 1.26 MG/DL (0.70-1.30); GFR AFRICAN AMERICAN 66 ML/MIN (>=60); GFR NON AFRICAN AMERICAN 57 ML/MIN (>=60); GLUCOSE, SERUM 160 MG/DL (60-99); POTASSIUM, SERUM 3.5 MMOL/L (3.5-5.3); SODIUM, SERUM 136 MMOL/L (135-148)
[2016-12-29 05:49] LABS: CO2 (CARBON DIOXIDE) 41 MMOL/L (24-34); PHOSPHORUS, SERUM 3.5 MG/DL (2.5-4.5)
== END 2016-12-29 17:50 | DRG 291 ==
LOC: ER 13:40 → CVICU 15:18 → IMCU 12-21 14:20 → 6NO 12-22 16:58 → IMCU 12-23 16:56 → 4EA 12-26 14:56
PROVIDERS: Emergency Medicine; Internal Medicine; Internal Medicine Critical Care Medicine; Internal Medicine Nephrology; Internal Medicine Pulmonary Disease; Nurse Practitioner Family; Orthopaedic Surgery Sports Medicine; Physician Assistant Medical
DX: I13.0 Hypertensive heart and chronic kidney disease with heart failure and stage 1 through stage 4 chronic kidney disease, or unspecified chronic kidney disease (principal); J96.21 Acute and chronic respiratory failure with hypoxia; E11.22 Type 2 diabetes mellitus with diabetic chronic kidney disease; I50.33 Acute on chronic diastolic (congestive) heart failure; N39.0 Urinary tract infection, site not specified; E66.2 Morbid (severe) obesity with alveolar hypoventilation; Z68.41 Body mass index [BMI] 40.0-44.9, adult; Z99.81 Dependence on supplemental oxygen; N18.3 Chronic kidney disease, stage 3 (moderate); Z79.01 Long term (current) use of anticoagulants; Z79.899 Other long term (current) drug therapy; E87.6 Hypokalemia; I48.2 Chronic atrial fibrillation
CPT/HCPCS: 36600; 71010; 80048; 80069; 80076; 80305; 81001; 82140; 82607; 82746; 82805; 82962; 83605; 83615; 83735; 83880; 84100; 84145; 84439; 84443; 84484; 85014; 85018; 85025; 85610; 85730; 87040; 87077; 87086; 87186; 87449; 87641; 93005; 94640; 94660; 96374; 96375; 97161-GP; 97164-GP; 97530-GP; 99291; A9270-GY; C9113; J0360; J1120; J1170; J1940; J3370; J3411; P9045; P9047

== ENCOUNTER 2017-01-07 10:26 | Inpatient (IN) | payer BC ==
--- NOTE | ~2017-01-07 | CN ---
Consultation Report [facility] [address] [place]. [address] NAME: ZOË DICKINSON : 43 STATUS : REG ER PAT#: [id number] AGE: 71 ADM/REG DATE : 01/07/17 MR#: [id number] REPORT SERV DATE: 01/07/17 DICTATED BY: ENRIQUE HUBBARD DATE: 01/07/17 REPORT STATUS : Draft TRANSCRIBED BY: MODL DATE: 01/07/17 NEPHROLOGY CONSULT DATE OF CONSULTATION: 01/07/2017 REQUESTING PHYSICIAN: Dr. Collier. REASON FOR CONSULT: Acute kidney injury. HISTORY OF PRESENT ILLNESS: Mr. Dickinson is a 71-year-old white male, who has a previous history of dialysis dependence after gallstone pancreatitis. He was dialysis dependent from 09/2012 until 11/2012. He was recently at [facility] from 12/16/2016 until 12/29/2016, during which time his creatinine fluctuated between 0.9 and 1.4. Echocardiogram on 12/24/2016 showed an EF of 60%, but unfortunately no right-sided pressures were documented. He apparently was discharged here from [facility] on 12/29/2016 with a creatinine of 1.32, [facility]. He was brought back today for respiratory failure and intubated in the ER. Here chest x-ray shows diffuse pulmonary infiltrates, white count 01707, BNP 184. His creatinine was 4.1, potassium 5.2. Troponin was negative. ABG on a non-rebreather prior to intubation showed pH of 7.06, PaCO2 of 97, PaO2 84. Wills catheter was placed in the ER and so far, no urine output has been obtained. PAST MEDICAL HISTORY: 1. History of dialysis dependence as per HPI, 09/2012 to 11/2012 after gallstone pancreatitis. 2. Probable CKD, baseline creatinine 0.9-1.4. 3. COPD, oxygen dependent. 4. Obesity and sleep apnea. 5. Hyperlipidemia. 6. Insulin-dependent diabetes mellitus, on metformin. 7. Hypertension, on ARB. 8. Recent MRSA and enterococcal UTI. 9. Paroxysmal atrial fibrillation, on Eliquis. 10.EF 60%, 11/2016. MEDICATIONS ON ADMISSION: Neurontin 400 mg b.i.d., Lantus 30 units at bedtime 10 units a.m., Imdur 60 mg daily, Cozaar 25 mg daily, Glucophage 1000 mg b.i.d., magnesium, Protonix, Eliquis, DuoNeb inhaler, Symbicort inhaler, Coreg 12.5 mg b.i.d., Cardizem 240 mg daily, potassium 20 mEq daily, torsemide 20 mg daily, vitamin B6, vitamin D3, vitamin B12, and p.r.n. Ultram. Family history, social history, and review of systems unobtainable in the patient's current condition, on the ventilator. PHYSICAL EXAMINATION: Consultation Report [place] [id number] [facility] [place]. [address] NAME: ZOË DICKINSON : 43 STATUS : REG ER PAT#: [id number] AGE: 71 ADM/REG DATE : 01/07/17 MR#: [id number] REPORT SERV DATE: 01/07/17 DICTATED BY: ENRIQUE HUBBARD DATE: 01/07/17 REPORT STATUS : Draft TRANSCRIBED BY: YUDITH DATE: 01/07/17 VITAL SIGNS: Temperature 97.6, pulse 50, respirations 14, blood pressure 124/59, 94% saturation on 60% FiO2. GENERAL: He is an ill-appearing, obese, white male, who is intubated and sedated. Levophed is being started HEENT: Sclerae without icterus. Conjunctivae not injected. Oropharynx is clear. Mucous membranes are dry. No JVD. LUNGS: He has diffuse bilateral rhonchi without dyspnea or tachypnea on the ventilator. CARDIAC: Heart rate is bradycardic and regular. 2/6 murmur. No rub. ABDOMEN: Obese, soft, nontender, nondistended. Bowel sounds present throughout without rebound or guarding. EXTREMITIES: Show no edema. SKIN: Shows venous stasis with mild cellulitis of both ankles. No rash is appreciated. No livedo reticularis. NEURO: Deferred. MUSCULOSKELETAL: Shows no active process. He has a Wills catheter in place with no urine output and minimal gross hematuria noted. LABORATORY DATA: Sodium 133, potassium 5.2, bicarb 32, BUN 72, creatinine 4.1, GFR 13 mL/minute. Calcium 8.5, albumin 3.5, BNP 184. LFTs and troponin are normal. White count 44333 without eosinophilia, hemoglobin 10.3, platelets 252,000. Chest x-ray shows cardiomegaly with diffuse infiltrates. ASSESSMENT/PLAN: Mr. Dickinson has chronic kidney disease, baseline creatinine 0.9-1.4 in recent weeks, has now presented with azotemia, acute kidney injury, hyponatremia, hyperkalemia, leukocytosis, anemia, chronic obstructive pulmonary disease, hypercapnic and hypoxic respiratory failure, diffuse pulmonary infiltrates, bradycardia, and hematuria. Chest x-ray shows diffuse infiltrates, but volume status at this time is unclear. He looks intravascularly volume depleted on exam. His BNP is not elevated and he has no edema. His infiltrates may more represent pneumonia or aspiration versus edema? Hold ARB, Demadex, and metformin. IV fluids for now to resuscitate volume. Check procalcitonin. Defer antibiotics to the Critical Care Service. Supportive care. Watch labs. Avoid nephrotoxic medications. If he does not improve in the next 24 hours, may require CRRT. Group will follow with you closely. Appreciate consult. ZEINA/YUDITH Enrique Hubbard M.D. / [id number]
--- NOTE | ~2017-01-07 | CN ---
Consultation Report [address] [place]. [address] NAME: ZOË DICKINSON : 43 STATUS : ADM IN PAT#: [id number] AGE: 71 ADM/REG DATE : 01/07/17 MR#: [id number] REPORT SERV DATE: 01/08/17 DICTATED BY: Yoly REYES DATE: 01/08/17 REPORT STATUS : Draft TRANSCRIBED BY: MODL DATE: 01/08/17 CONSULTATION. DATE OF CONSULTATION: 01/07/2017 CHIEF COMPLAINT: Inability to place a Wills catheter. HISTORY OF PRESENT ILLNESS: Mr. Dickinson is a 71-year-old white male, currently intubated, admitted with acute hypercarbic respiratory failure with a host of other medical problems. There have been multiple attempts to place a Wills catheter, no one has been successful. His daughter happened to be nearby when I saw him and stated that he had had some kind of prostate surgery around 2006. She did not think it was for cancer and he did not have an incision site, presumably it was a TURP. Apparently, he has been doing well since that time. He is currently sedated. PAST MEDICAL HISTORY: 1. Oxygen-dependent COPD. 2. Chronic cor pulmonale. 3. Hypertension. 4. Diabetes mellitus. 5. Obstructive sleep apnea. 6. Morbid obesity. 7. GERD. 8. Hyperlipidemia. 9. History of pancreatitis due to gallstone disease. 10.CAD with diastolic dysfunction. MEDICATIONS: Home Medicines: Acetaminophen, DuoNeb, Eliquis, budesonide, Coreg, cholecalciferol, cyanocobalamin, diltiazem, gabapentin, insulin, isosorbide, losartan, magnesium oxide, metformin, pantoprazole, potassium supplements, pyridoxine, torsemide, tramadol. ALLERGIES: NO LISTED DRUG ALLERGIES. REVIEW OF SYSTEMS: Positive as noted above. Further complete review of systems cannot be obtained. PAST SURGICAL HISTORY: Probable TURP, otherwise unknown. FAMILY HISTORY: Negative for urologic disease. PHYSICAL EXAMINATION: GENERAL: Intubated, 71-year-old, white male, afebrile. VITAL SIGNS: Normal vital signs. Consultation Report [place] [id number] [facility] [place]. [address] NAME: ZOË DICKINSON : 43 STATUS : ADM IN PAT#: [id number] AGE: 71 ADM/REG DATE : 01/07/17 MR#: [id number] REPORT SERV DATE: 01/08/17 DICTATED BY: Yoly REYES DATE: 01/08/17 REPORT STATUS : Draft TRANSCRIBED BY: YUDITH DATE: 01/08/17 RESPIRATORY: Normal lung excursion. HEART: Regular rate and rhythm. ABDOMEN: Protuberant, nontender, nondistended. No suprapubic distention noted. No CVA abnormalities noted. GENITOURINARY: He has an uncircumcised penis with some blood at the meatus. EXTREMITIES: Bilateral lower extremity edema noted. PERTINENT LABORATORY DATA: Creatinine 4.1. Urinalysis not available. IMPRESSION: 1. Inability to place Wills catheter. 2. Probable history of TURP. PLAN: I will call for the flexible cystoscopy cart and attempt to place a catheter at the bedside. I did try to place a catheter one time, but it was unsuccessful with a high proximal obstruction. Further evaluation as indicated. GALE/YUDITH Yoly Reyes M.D. / [id number] CC: Maral Frederick M.D. UNKNOWN
--- NOTE | ~2017-01-07 | DS ---
Discharge Summary [place] [address] [place]. [address] NAME: ZOË DICKINSON : 43 STATUS : ADM IN PAT#: [id number] AGE: 71 ADM/REG DATE : 01/07/17 MR#: [id number] REPORT SERV DATE: 01/21/17 DICTATED BY: Jose MARQUEZ DATE: 01/21/17 REPORT STATUS : Draft TRANSCRIBED BY: MODL DATE: 01/21/17 ADMISSION DATE: 01/07/2017 DISCHARGE DATE: 01/21/2017 DIAGNOSES AT DISCHARGE: 1. Acute on chronic respiratory failure with hypoxia and hypercapnia. 2. Sleep apnea. 3. Obesity. 4. Hypoventilation syndrome. 5. Cor pulmonale. 6. Chronic kidney disease, stage 3. 7. Chronic atrial fibrillation. 8. Acute encephalopathy. ACTIVE CONSULTS: None. PROCEDURES: None. For details of earlier hospital stay, please see interim summary dictated by Dr. Abhinav Cash on 01/16/2017. HOSPITAL COURSE: Starting 01/17/2017, based on patient's current clinical status and multiple comorbidities and advanced underlying organ disease, decision was made based on a conversation between the Hospitalist and the Pulmonary Service to seek palliative care input. Based on review from palliative care services and the family, the decision was made for DNR, DNI and to initiate hospice evaluation and treatment. The patient was seen and evaluated by [facility], accepted for treatment under their care, and ultimately was discharged to the care of [facility] on the afternoon of 01/21/2017 for ongoing palliative care. As mentioned above, he is DNR, DNI. The patient will for now continue his home medications per his MAR but further recommendations for ongoing palliative treatment per [facility]. [facility]/YUDITH Jose Marquez M.D. / [id number] CC: Beata Fierro MD
--- NOTE | ~2017-01-07 | HP ---
History And Physical [place] [id number] [facility] [place]. [address] NAME: ZOË DICKINSON : 43 STATUS : ADM IN [facility]#: [id number] AGE: 71 ADM/REG DATE : 01/07/17 MR#: [id number] REPORT SERV DATE: 01/07/17 DICTATED BY: AYDEN COLLIER DATE: 01/07/17 REPORT STATUS : Draft TRANSCRIBED BY: MODL DATE: 01/07/17 DATE OF ADMISSION: 01/07/2017 HISTORY OF PRESENT ILLNESS: This is a 71-year-old white male, who was recently discharged on 12/29/2016 with a diagnosis of iflfi-wu-hgicfmp diastolic heart failure, gufui-fi-ioczfdd respiratory failure, and urinary tract infection. The patient was discharged to [facility] and brought back today because of developing respiratory failure. The patient was found to be having acute hypercapnic respiratory failure with a pH of 7.06, pCO2 of 97, PO2 of 84, bicarb 26.5, O2 saturation 92.1%. The patient was emergently intubated in the emergency room, placed on the ventilator. It was there, where I evaluated him. We have initial chest x-ray that showed evidence of possible bilateral pulmonary edema. However, his sodium level and his chloride level were low, and his BNP was only 183. His lactate was negative initially for consideration of sepsis. He was on CMV mode for his ventilator with normal tidal volumes with a tidal volume of 500 that was set, however his PEEP pressures were initially 40. I lowered his tidal volume and we got a repeat gas later showing a pH of 7.29, pCO2 57, PO2 67. CT of his chest, abdomen, pelvis were performed, which showed not insignificant in the belly, but did show some bilateral pleural effusions as well as a pericardial effusion. He did get a stat 2D echocardiogram showing again a normal EF of 60% along with pericardial effusion. A PICC line was placed in the right arm in the emergency room and the patient was brought to the MICU for ongoing care. Nephrology evaluated the patient in the emergency room for his acute kidney injury and they are holding his renally toxic medicines that include ARB, Demadex, and metformin. It was suspected by him and myself that he might actually be intravascularly dry possibly. Although, volume status in him is somewhat difficult due to his obesity. REVIEW OF SYSTEMS: Unable to be obtained. PAST MEDICAL HISTORY: 1. History of dialysis, back in 2011 and 2012 for gallstone pancreatitis. 2. Chronic kidney disease. 3. COPD. 4. Obstructive sleep apnea. 5. Dyslipidemia. 6. Insulin-dependent diabetes. 7. Hypertension. 8. Recent MRSA and enterococcal UTI. 9. Atrial fibrillation. 10.Diastolic dysfunction with normal EF. HOME MEDICATIONS: Neurontin, Lantus, Imdur, Cozaar, Glucophage, magnesium, Protonix, Eliquis, DuoNeb, Symbicort, Coreg, Cardizem, potassium, torsemide, vitamin B6, vitamin D3, vitamin B12, and Ultram. FAMILY HISTORY: Mother with breast and stomach cancer. Brother, pancreatitis. Father, heart attack. History And Physical [address] [address] NAME: ZOË DICKINSON : 43 STATUS : ADM IN [facility]#: [id number] AGE: 71 ADM/REG DATE : 01/07/17 MR#: [id number] REPORT SERV DATE: 01/07/17 DICTATED BY: AYDEN COLLIER DATE: 01/07/17 REPORT STATUS : Draft TRANSCRIBED BY: YUDITH DATE: 01/07/17 SOCIAL HISTORY: History of tobacco use. No alcohol or illicit drugs. Does have a daughter. ALLERGIES: NO KNOWN DRUG ALLERGIES. PHYSICAL EXAMINATION: VITAL SIGNS: Per nursing flow sheet. GENERAL: Sedated on propofol. HEENT: Normocephalic, atraumatic. NEURO: Unable to fully assess given sedation. NECK: Trachea midline. HEART: Regular rate and rhythm. No murmurs. LUNGS: Clear anteriorly. Ventilator settings reviewed. GI: Obese, soft, nontender, nondistended. EXTREMITIES: Very minimal trace leg edema. : Wills catheter in place, but no significant urine be made. LABORATORY DATA: Labs and radiology studies reviewed. ASSESSMENT AND PLAN: 1. Acute hypercarbic respiratory failure. 2. Bilateral pleural effusions. 3. Atelectasis versus bacterial pneumonia. 4. Pericardial effusion. 5. Acute kidney injury. 6. Hyperglycemia. 7. Hyponatremia. 8. Diastolic heart failure. 9. Type 2 diabetes. 10.Atrial fibrillation. 11.Hypotension. 12.From a neurologic perspective, we will keep him sedated on propofol and titrate drip to a goal RASS of 0 to -1. We can use p.r.n. narcotics if needed for discomfort. 13.Cardiac echocardiogram showed again a normal EF of 60%, but did show pericardial effusion. 14.We will have Cardiology to evaluate the patient. The patient is on Eliquis for atrial fibrillation, which is currently on hold for now, but we will probably have to be restarted at some point. He is currently in a rate controlled atrial fibrillation. 15.Lungs currently on the ventilator in a CMV mode with a rate of 18, tidal volume of 400, PEEP of 10, and FiO2 of 50%. We will follow a periodic chest x-ray. CT scan of the chest showed bilateral diwvo-ef-juzfospq pleural effusions with atelectasis versus pneumonia. There is not much in the way of pulmonary edema. We will cover the patient with vancomycin, Zosyn empirically for possible pneumonia, and we will put the patient on bronchodilator protocol since he clinically at least out patiently he has a diagnosis of chronic obstructive pulmonary disease. 16.GI. The patient is currently n.p.o. He is okay to have medicines down his OG tube. 17.. Currently, he has a Wills catheter in place, not making much urine, but does have History And Physical [address] [address] NAME: ZOË DICKINSON : 43 STATUS : ADM IN [facility]#: [id number] AGE: 71 ADM/REG DATE : 01/07/17 MR#: [id number] REPORT SERV DATE: 01/07/17 DICTATED BY: AYDEN COLLIER DATE: 01/07/17 REPORT STATUS : Draft TRANSCRIBED BY: MODL DATE: 01/07/17 acute kidney injury. His nephrotoxic medications are on hold and Nephrology is following. We will give him gentle hydration with normal saline at 100 mL/h and re- evaluate. Suspect that, he may be intravascularly volume depleted given the fact that he was on Demadex as an outpatient and both his sodium and chloride levels were low as well as his BNP only being 183. 18.Endocrine. The patient is diabetic and was on metformin as an outpatient, which will be held. We will keep him on a sliding scale of insulin and get glucose checked. 19.Infectious cultures are drawn, he is currently empirically on Zosyn and vancomycin. He is on Levophed for vasopressor support. Last lactate was negative. We will re-order this. Greater than 30 minutes of critical care time. CEP/MODL Ayden Collier DO / [id number] CC: Maral Frederick M.D.
--- NOTE | ~2017-01-07 | OP ---
Record Of Operation [facility] [address] [place]. [address] NAME: ZOË DICKINSON : 43 STATUS : ADM IN PAT#: [id number] AGE: 71 ADM/REG DATE : 01/07/17 MR#: [id number] REPORT SERV DATE: 01/08/17 DICTATED BY: Yoly REYES DATE: 01/08/17 REPORT STATUS : Draft TRANSCRIBED BY: MODL DATE: 01/08/17 DATE OF PROCEDURE: 01/07/2017 PREOPERATIVE DIAGNOSIS: Inability to place a Wills catheter. POSTOPERATIVE DIAGNOSIS: Inability to place a Wills catheter, probably due to vesical neck contracture. PROCEDURE: CYST cystoscopy, urethral dilation, difficult Wills catheter placement. SURGEON: Yoly Reyes M.D. ANESTHESIA: Local. COMPLICATIONS: None. DRAINS: An 18-Eth[place] Councill Wills catheter. BRIEF HISTORY: Mr. Dickinson is a 71-year-old white male, admitted with hypercarbic respiratory failure. The nurses were unable to place a Wills and history suggestive he had a likely previous TURP. I attempted once at the bedside, but was unsuccessful, due to proximal obstructing. I therefore got the flexible cysto cart brought in to the room. DESCRIPTION OF PROCEDURE: Under sterile conditions, the patient was prepped and draped in standard fashion. Flexible cystoscopy was performed. It showed a normal anterior urethra, there was a lot of blood from previous catheter attempts, I could not definitely see his vesical neck, although, it was definitely in the bladder. I advanced a Glidewire through the scope and then removed the scope carefully. I advanced an 18-Eth[place] Councill Wills, encountered 400 mL of bloody urine which drained well, it was sent for urine and culture. 20 mL of sterile water was placed in the balloon and I plan to leave this until removal is appropriate. GALE/YUDITH Yoly Reyes M.D. / [id number] CC: Maral Frederick M.D.
--- NOTE | ~2017-01-07 | IDS ---
Interim Discharge Summary [facility] [address] [place]. [address] NAME: ZOË DICKINSON : 43 STATUS : ADM IN PAT#: [id number] AGE: 71 ADM/REG DATE : 01/07/17 MR#: [id number] REPORT SERV DATE: 01/16/17 DICTATED BY: KATHI CASH DATE: 01/16/17 REPORT STATUS : Draft TRANSCRIBED BY: MODL DATE: 01/16/17 ADMISSION DATE: 01/07/2017 DISCHARGE DATE: CONSULTANTS: Dr. Ayden Collier and Dr. Maral Frederick, Pulmonary Critical Care, Dr. Annelise Thompson, Pulmonary, Dr. Brandin Ware, and Dr. Wilver Riley, Cardiology, Dr. Yoly Ellsworth, Urology. PROBLEM LIST: 1. Tykcb-rh-afyzlte hypercapnic hypoxic respiratory failure. 2. Obesity hypoventilation syndrome. 3. Cor pulmonale suspected on clinical grounds. 4. Acute kidney injury superimposed on stage 3 chronic kidney disease in a gentleman, who has had previous hemodialysis, 09/2012 through 11/2012 associated with previous pancreatitis. 5. Chronic atrial fibrillation, on Eliquis and Coreg with left ventricular ejection fraction of 60%. 6. Gross hematuria, on continuous bladder irrigation due to multiple failed Wills catheter placements and Eliquis therapy. 7. Possible COPD. 8. Morbid obesity with body mass index of 53.9. 9. Diabetes mellitus type 2 with A1c 7.3%. 10.Previous hypertension, but with recent hypotension with diuresis. 11.Previous urinary tract infections. 12.Previous pancreatitis with pseudocyst, 2013. 13.Iron deficiency anemia. 14.Severe deconditioning. HISTORY: This patient had just been discharged on 12/29/2016 for gwllx-ad-nrdhbzi hypoxic and hypercapnic respiratory failure, when he presented back to the emergency room from [facility] with extreme lethargy. He was again noted to have hypercapnia, pH was 7.06, pCO2 97, PO2 84, bicarbonate 25. The patient was intubated in the emergency room. The patient was cared for by Pulmonary Critical Care. The patient's chest x-rays continued to look like not only cardiomegaly, but pulmonary venous congestion even though his B-natriuretic peptide has stayed between 42 and 183, and his echocardiogram on 01/07/2017 still shows normal left ventricular size and function with ejection fraction of 60%. The right ventricle was not well seen. We do not have pulmonary artery pressures. His left atrium is enlarged at 5.[address] Ware of Cardiology feels the patient has cor pulmonale and does not have "congestive heart failure". The patient improved enough to finally get off the ventilator and moved to the medical floor, but because of ongoing hypercapnia and high respiratory effort and lethargy, the patient was moved to the IMCU for more time on the BiPAP, that has now improved again. With diuresis, the patient has no more peripheral edema. He did have even some hypotension and he got contraction alkalosis, but he has been given Diamox and that has improved. Interim Discharge Summary [place] [id number] [facility] [place]. [address] NAME: ZOË DICKINSON : 43 STATUS : ADM IN [facility]#: [id number] AGE: 71 ADM/REG DATE : 01/07/17 MR#: [id number] REPORT SERV DATE: 01/16/17 DICTATED BY: KATHI CASH DATE: 01/16/17 REPORT STATUS : Draft TRANSCRIBED BY: YUDITH DATE: 01/16/17 There was attempts to place a Wills catheter when he first came into the hospital this time. They had great difficulty with that. Dr. Ellsworth saw the patient. He tried to place a Wills himself, but was unsuccessful, so he did cystoscopy, urethral dilatation, felt the patient had a probable vesicular neck contracture. The patient is on Eliquis for his atrial fibrillation. He developed gross hematuria, had to be taken back to the operating room with Dr. Ellsworth on 01/08/2017 for cystoscopy and clot evacuation and fulguration of posterior bladder wall. The patient has been on continuous bladder irrigation. Because of the risk of stroke, he has been continued on Eliquis. He was having to have nursing do frequent manual irrigations of the Wills catheter to remove large clots. Now finally, that is improved and he has clear drainage with very low rates of CBI. The patient has had microcytic anemia and his studies are consistent with iron deficiency. B12 and folate were fine. His ferritin was technically normal at 37, but for the acute inflammatory state that he has been, it should be dramatically higher than that, so he really has iron deficiency. He is therefore been receiving Ferrlecit intravenously. It is questionable about whether this patient really has a history of COPD at all. He reportedly has a very small smoking history and it is possible that he may just have obesity hypoventilation and severe deconditioning leading to his respiratory compromise. At this point in time, we are asking physical therapy to try to work on mobilizing him. It is anticipated that, the patient will have a slow gradual improvement and will need rehabilitation. Long-term, he needs to have significant weight reduction and improvement in the strength of his core muscles to reduce his risk of this rapidly recurring hypercapnic respiratory failure. RSG/MODL Kathi Cash M.D. / [id number] CC: Beata Roberts MD
--- NOTE | ~2017-01-07 | CN ---
Consultation Report [facility] [address] [place]. [address] NAME: ZOË DICKINSON : 43 STATUS : ADM IN [facility]#: [id number] AGE: 71 ADM/REG DATE : 01/07/17 MR#: [id number] REPORT SERV DATE: 01/07/17 DICTATED BY: BRANDIN MCCURDY DATE: 01/07/17 REPORT STATUS : Draft TRANSCRIBED BY: MODL DATE: 01/07/17 CARDIOLOGY CONSULT DATE OF CONSULTATION: 01/07/2017 REASON FOR CONSULTATION: Atrial fibrillation and acute respiratory failure. HISTORY OF PRESENT ILLNESS: Mr. Dickinson is a 71-year-old male with multiple medical problems, who presented to the emergency room with worsening shortness of breath and altered mental status. He was found to have acute hypercarbic and hypoxic respiratory failure. Initial ABG with a pH of 7.0, CO2 of 97, and O2 of 84 on a 100% FiO2. He was sedated, intubated, and admitted to the loader helper service in the MICU. He had some initial hypotension and has been supported on IV norepinephrine. He has been receiving pulmonary care and antibiotics. His care is further complicated by acute renal failure on chronic kidney disease with a creatinine of 4. He has required intermittent hemodialysis in the past during periods of critical illness, but has no long-term hemodialysis. He has known chronic atrial fibrillation and a history of chronic diastolic heart failure. BNP on admission was only 180, in the setting of his critical presentation and troponins were negative. No reported history of preceding chest pain or angina. He has chronic lower extremity edema and venous stasis. Further review of systems not possible as the patient is currently sedated and intubated. REVIEW OF SYSTEMS: Pertinent positives and negatives are as outlined above, all others cannot be determined with the patient's critical illness. PAST MEDICAL HISTORY: 1. COPD, severe-oxygen dependent. 2. Chronic cor pulmonale. 3. Hypertension. 4. Obesity. 5. Obstructive sleep apnea. 6. Diabetes mellitus, type 2. 7. Hyperlipidemia. 8. Gastroesophageal reflux disease. CURRENT HOME MEDICATIONS: 1. Carvedilol 12.5 mg b.i.d. 2. Diltiazem 240 mg daily. 3. Losartan 25 mg daily. 4. Torsemide 20 mg daily. 5. Potassium supplementation. 6. Eliquis 5 mg twice daily. 7. Vitamin B12 supplementation. Consultation Report [facility] [address] [place]. [address] NAME: ZOË DICKINSON : 43 STATUS : ADM IN PAT#: [id number] AGE: 71 ADM/REG DATE : 01/07/17 MR#: [id number] REPORT SERV DATE: 01/07/17 DICTATED BY: BRANDIN MCCURDY DATE: 01/07/17 REPORT STATUS : Draft TRANSCRIBED BY: YUDITH DATE: 01/07/17 8. Vitamin D supplementation. 9. Symbicort as directed. 10.DuoNeb inhaler as directed. 11.Pantoprazole 40 mg daily. 12.Metformin 1000 mg twice daily. 13.Levemir insulin as directed. 14.NovoLog insulin as directed. 15.Gabapentin 400 mg twice daily. 16.Imdur 60 mg daily. ALLERGIES: INCLUDE NO KNOWN DRUG ALLERGIES. SOCIAL HISTORY: He has a history of tobacco use, but quit. He does not consume alcohol or use illegal drugs. FAMILY HISTORY: No reported history of premature CAD, cardiomyopathy, or sudden . PHYSICAL EXAMINATION: VITALS: Temperature is afebrile, pulse is 70, respirations 16, and blood pressure 160/80. GENERAL: Well-developed obese male, who is currently sedated and intubated with mechanical ventilation. HEENT: Sclerae anicteric, mucous membranes moist and without lesions. NECK: Unable to determine JVD due to body habitus. Carotid upstrokes 2+ and symmetric. There are no carotid bruit. LUNGS: Moderately decreased breath sounds throughout with no wheezes or crackles. CARDIOVASCULAR: Irregularly irregular with distant S1 and S2. No audible S3. No audible S4. No audible murmurs. No parasternal lift. PMI is not palpable. ABDOMEN: Obese, soft with positive and slightly hypoactive bowel sounds. PULSES: Radial and dorsalis pedis pulses 2+ and symmetric. EXTREMITIES: Warm with 2+ bilateral lower extremity edema, changes of chronic venous stasis. SKIN: No clubbing or cyanosis, no rashes or lesions. ACCESSORY DATA: Echocardiogram obtained showed an LVEF of 55% with normal LV dimensions. RV was enlarged with hypocontractility and consistent with cor pulmonale. There is a small focal posterior pericardial effusion. This was directly compared to June 2016 and November 2016, and is unchanged. IMPRESSION: 1. Acute hypercapnic/hypoxic respiratory failure. 2. Acute on chronic cor pulmonale. 3. Chronic atrial fibrillation. 4. Chronic focal posterior pericardial effusion without hemodynamic compromise. 5. Acute renal failure on chronic kidney disease. 6. Obesity, morbid. 7. Obstructive sleep apnea. Consultation Report [facility] [id number] [place]. [address] NAME: ZOË DICKINSON : 43 STATUS : ADM IN PAT#: [id number] AGE: 71 ADM/REG DATE : 01/07/17 MR#: [id number] REPORT SERV DATE: 01/07/17 DICTATED BY: BRANDIN MCCURDY. DATE: 01/07/17 REPORT STATUS : Draft TRANSCRIBED BY: MODL DATE: 01/07/17 8. Hypertension. PLAN: Mr. Dickinson primary presentation appears to be related to a decompensated pulmonary status. He has chronic cor pulmonale, chronic lower extremity edema, and chronic atrial fibrillation. Echocardiogram was reviewed and compared to prior tracings, and a small focal posterior pericardial effusion is unchanged from prior exams. There is no evidence of acute "heart failure." His BNP was only 180 in the setting of his acute presentation, showed troponins were unremarkable. Recommend ongoing critical care per Critical Care Medicine and management of acute renal failure per Nephrology. No new cardiology recommendations at this time. AEA/YUDITH Brandin Mccurdy M.D. / [id number] CC: Maral Frederick M.D.
--- NOTE | ~2017-01-07 | OP ---
Record Of Operation [facility] [address] [place]. [address] NAME: ZOË DICKINSON : 43 STATUS : ADM IN PAT#: [id number] AGE: 71 ADM/REG DATE : 01/07/17 MR#: [id number] REPORT SERV DATE: 01/08/17 DICTATED BY: Yoly REYES DATE: 01/08/17 REPORT STATUS : Draft TRANSCRIBED BY: MODL DATE: 01/08/17 DATE OF PROCEDURE: 01/08/2017 PREOPERATIVE DIAGNOSIS: Urinary clot retention. POSTOPERATIVE DIAGNOSES: Urinary clot retention, posterior prostatic urethral trauma. PROCEDURE: Cystoscopy, clot evacuation, fulguration of posterior bladder wall, examination under anesthesia. SURGEON: Yoly Reyes M.D. ANESTHESIA: General. COMPLICATIONS: None. DRAINS: A 24-Arabic three-way Wills catheter with continuous bladder irrigation. Intraoperative specimens approximately 800 mL of formed clot. BRIEF HISTORY: Mr. Dickinson is a 71-year-old white male, admitted yesterday with acute hypercarbic hypoxic respiratory failure. Nurses were unable to place a Wills after multiple attempts. I placed a catheter at the bedside via flexible cystoscopy yesterday, but the patient developed progressive hematuria, unresponsive to irrigation and salomon clot retention this morning, and it is obvious he had a distended bladder to the umbilicus and we decided to proceed to the OR. This is obviously a high risk situation planning cystoscopy, clot evacuation, etc. The nurses spoke to the family, I had spoken to the family last night, but I have not yet been able to talk to him today. DESCRIPTION OF PROCEDURE: Under excellent general anesthesia, the patient was prepped and draped in standard lithotomy position. Again his bladder was distended to the umbilicus and blood was dripping per urethra. Digital exam revealed a 2 to 3+ symmetric, smooth prostate gland. Cystoscopy was performed with a 25-Arabic Storz sheath and I could see basically nothing, although I felt comfortable that I was in the bladder. I started to irrigate clots with the Ellik evacuator through that and then I put in a 26-Arabic Storz resectoscope sheath before any significant reduction in the bladder size. I irrigated 100 mL of clot and finally got some decent drainage. I was unable to inspect the bladder. There was some clot in the urethra. There was an obvious trauma to the posterior urethra where a catheter attempt had been made. The left lobe looked unresected, although it could be regrowth. There was evidence of resection on the right lobe. I saw a normal left orifice, but could never find the right orifice. I did not see any bladder masses. There were several places acutely bleeding more traumatic than anything else on the posterior bladder wall that I fulgurated and then because of this posterior urethral perforation. I wanted to make sure to get the catheter into the bladder, so I inserted an angled glidewire by direct vision into the bladder and then modified a 24-Arabic three-way by cutting off the tip. I advanced a three-way into the filled bladder and placed 40 mL of sterile water in the balloon. We will continue CBI and proceed as indicated depending upon his clinical course. Record Of Operation [facility] [id number] [facility] [place]. [address] NAME: ZOË DICKINSON : 43 STATUS : ADM IN PAT#: [id number] AGE: 71 ADM/REG DATE : 01/07/17 MR#: [id number] REPORT SERV DATE: 01/08/17 DICTATED BY: Yoly REYES DATE: 01/08/17 REPORT STATUS : Draft TRANSCRIBED BY: YUDITH DATE: 01/08/17 GALE/YUDITH Yoly Reyes M.D. / [id number] CC: Maral Frederick M.D.
[2017-01-07 10:07] LABS: ALLENS TEST Pos; BE (BASE EXCESS) -5.6 MEQ/L (0 +/- 2.5); CARBOXYHEMOGLOBIN 1.4 % (0-3); DEVICE NRB; HCO3 (ACTUAL BICARBONATE) 26.5 MEQ/L (23-27); HEMOBLOGIN CONTENT 11.7 G/DL (14-18); INSTRUMENT SERIAL # 8087; METHEMOGLOBIN 0.4 % (0-3); OPERATOR ID 14335; PCO2 (CO2 TENSION) 97 MMHG (35-45); PO2 (O2 TENSION) 84 MMHG (79-93); SAMPLE Arterial; pH 7.06 (7.37-7.43)
[2017-01-07 10:15] LABS: BASOPHILS 0.1 %; BASOPHILS ABSOLUTE 0.02 10/3/uL (0.0-0.16); EOSINOPHILS 0.9 %; EOSINOPHILS ABSOLUTE 0.15 10/3/uL (0.0-0.53); ER CBC TAT 0 Hrs 07 Mins; HEMATOCRIT 35.2 % (40.0-51.0); HEMOGLOBIN 10.3 g/dL (13.6-17.8); IMMATURE GRANULOCYTES 2.1 %; IMMATURE GRANULOCYTES ABSOLUTE 0.33 10/3/uL (0.0-0.11); LYMPHOCYTES 13.6 %; LYMPHOCYTES ABSOLUTE 2.18 10/3/uL (0.67-4.30); MEAN CORPUS HGB CONC 29.3 g/dL (32.0-36.0); MEAN CORPUSCULAR HEMOGLOB 24.5 pg (26.0-34.0); MEAN CORPUSCULAR VOLUME 83.8 fL (80-100); MEAN PLATELET VOLUME 10.3 fL (9.2-13.0); MONOCYTES 7.3 %; MONOCYTES ABSOLUTE 1.16 10/3/uL (0.21-1.20); NEUTROPHILS ABSOLUTE 12.16 10/3/uL (2.02-8.40); PLATELET COUNT 252 10/3/uL (150-400); RBC DISTRIBUTION WIDTH 16.7 % (12.0-16.0)
[2017-01-07 10:16] LABS: MANUAL DIFF NO %
[2017-01-07 10:21] LABS: INTERNATIONAL NORMAL RATI 1.3 UNITS (-); PARTIAL THROMBO TIME 32.2 SEC (22.5-37.2); PROTIME (NOT ORD) 16.4 SEC (12.0-14.5)
[2017-01-07 10:31] LABS: A/G RATIO 0.8 (0.7-1.9); ALBUMIN 3.5 G/DL (3.5-5.0); ALKALINE PHOSPHATASE 113 U/L (45-117); BUN (BLOOD UREA NITROGEN) 72 MG/DL (6-23); CALCIUM, SERUM 8.5 MG/DL (8.5-10.4); CHLORIDE, SERUM 91 MMOL/L (96-112); CO2 (CARBON DIOXIDE) 32 MMOL/L (24-34); CREATININE 4.15 MG/DL (0.70-1.30); GFR AFRICAN AMERICAN 16 ML/MIN (>=60); GFR NON AFRICAN AMERICAN 13 ML/MIN (>=60); GLOBULIN 4.2 G/DL (2.5-4.1); GLUCOSE, SERUM 229 MG/DL (60-99); POTASSIUM, SERUM 5.2 MMOL/L (3.5-5.3); SGOT(AST) 28 U/L (5-40); SGPT(ALT) 63 U/L (5-65); SODIUM, SERUM 133 MMOL/L (135-148); TOTAL BILIRUBIN 0.8 MG/DL (0-1.2); TOTAL PROTEIN 7.7 G/DL (6.0-8.5); TROPONIN I 0.03 NG/ML (<0.05)
[2017-01-07] MEDS ORDERED: NOVOLOG SC (10:39)
[2017-01-07] MEDS ORDERED: IMDUR60 PO (10:42)
[2017-01-07] MEDS ORDERED: LEVEMIR SC (10:43)
[2017-01-07] MEDS ORDERED: VIT B-SIX 50 MG50 MG PO (10:44)
[2017-01-07] MEDS ORDERED: CARDCD240 PO (10:45)
[2017-01-07 10:50] LABS: LACTATE 1.1 MMOL/L (0.3-2.4)
[2017-01-07 12:56] LABS: INSTRUMENT SERIAL # 8087; PCO2 (CO2 TENSION) 57 MMHG (35-45); pH 7.29 (7.37-7.43)
[2017-01-07 12:57] LABS: ALLENS TEST Pos; BE (BASE EXCESS) -0.7 MEQ/L (0 +/- 2.5); CARBOXYHEMOGLOBIN 1.4 % (0-3); DEVICE VENT; HCO3 (ACTUAL BICARBONATE) 26.6 MEQ/L (23-27); HEMOBLOGIN CONTENT 10.9 G/DL (14-18); METHEMOGLOBIN 0.4 % (0-3); MODE CMV; OPERATOR ID 14335; PO2 (O2 TENSION) 67 MMHG (79-93); SAMPLE Arterial; TIDAL VOLUME 400 ML
[2017-01-07 17:09] LABS: B NATRIURETIC PEPTIDE (BNP) 134.9 PG/ML (< 100.0)
[2017-01-07 17:12] LABS: ALBUMIN 3.5 G/DL (3.5-5.0); CALCIUM, SERUM 8.9 MG/DL (8.5-10.4); CHLORIDE, SERUM 93 MMOL/L (96-112); CO2 (CARBON DIOXIDE) 28 MMOL/L (24-34); CREATININE 4.22 MG/DL (0.70-1.30); FREE T4 1.45 NG/DL (0.76-1.46); GFR AFRICAN AMERICAN 15 ML/MIN (>=60); GFR NON AFRICAN AMERICAN 13 ML/MIN (>=60); GLUCOSE, SERUM 228 MG/DL (60-99); POTASSIUM, SERUM 5.2 MMOL/L (3.5-5.3); SODIUM, SERUM 132 MMOL/L (135-148); TROPONIN I 0.02 NG/ML (<0.05)
[2017-01-07 17:13] LABS: BUN (BLOOD UREA NITROGEN) 76 MG/DL (6-23); CK-MB 3.6 NG/ML; CPK 71 U/L (0-200); PHOSPHORUS, SERUM 6.1 MG/DL (2.5-4.5); ULTRASENSITIVE TSH 0.296 MCIU/ML (0.358-3.740)
[2017-01-07 18:25] LABS: PROCALCITONIN 0.12 ng/mL (<0.5)
[2017-01-07 21:55] LABS: WBC (NOT ORDERED) (RFLEX) 0 (0-5)
[2017-01-07 22:38] LABS: GLYCOHEMOGLOBIN (HbA1c) 7.3 % (4.7-6.1)
[2017-01-07 23:19] LABS: ASCORBIC ACID (UR NOT ORDER) NEG (NEG); BILIRUBIN, URINE NEGATIVE (NEG); KETONE, URINE NEGATIVE (NEG); LEUKOCYTE ESTERASE(NOT OR NEG (NEG)
[2017-01-08 01:04] LABS: TROPONIN I 0.02 NG/ML (<0.05)
[2017-01-08 01:07] LABS: CK-MB 2.9 NG/ML; CPK 51 U/L (0-200)
[2017-01-08 05:10] LABS: BASOPHILS 0.1 %; BASOPHILS ABSOLUTE 0.01 10/3/uL (0.0-0.16); EOSINOPHILS 0 %; HEMATOCRIT 31.1 % (40.0-51.0); IMMATURE GRANULOCYTES 0.8 %; IMMATURE GRANULOCYTES ABSOLUTE 0.08 10/3/uL (0.0-0.11); LYMPHOCYTES 3.8 %; MANUAL DIFF NO %; MEAN CORPUS HGB CONC 32.2 g/dL (32.0-36.0); MEAN CORPUSCULAR HEMOGLOB 25.6 pg (26.0-34.0); MEAN CORPUSCULAR VOLUME 79.7 fL (80-100); MEAN PLATELET VOLUME 10.4 fL (9.2-13.0); MONOCYTES 2.2 %; MONOCYTES ABSOLUTE 0.23 10/3/uL (0.21-1.20); NEUTROPHILS 93.1 %; PLATELET COUNT 202 10/3/uL (150-400); RBC DISTRIBUTION WIDTH 16.4 % (12.0-16.0); WHITE BLOOD CELLS 10.6 10/3/uL (4.5-10.5)
[2017-01-08 05:14] LABS: A/G RATIO 0.8 (0.7-1.9); BUN (BLOOD UREA NITROGEN) 75 MG/DL (6-23); CALCIUM, SERUM 8.5 MG/DL (8.5-10.4); CHLORIDE, SERUM 95 MMOL/L (96-112); CO2 (CARBON DIOXIDE) 25 MMOL/L (24-34); GLOBULIN 3.8 G/DL (2.5-4.1); GLUCOSE, SERUM 218 MG/DL (60-99); POTASSIUM, SERUM 5.3 MMOL/L (3.5-5.3); SGOT(AST) 35 U/L (5-40); SGPT(ALT) 65 U/L (5-65); SODIUM, SERUM 134 MMOL/L (135-148); TOTAL PROTEIN 6.8 G/DL (6.0-8.5)
[2017-01-08 05:15] LABS: ALKALINE PHOSPHATASE 83 U/L (45-117); CREATININE 3.64 MG/DL (0.70-1.30); GFR AFRICAN AMERICAN 18 ML/MIN (>=60); GFR NON AFRICAN AMERICAN 16 ML/MIN (>=60); PHOSPHORUS, SERUM 5.1 MG/DL (2.5-4.5)
[2017-01-08 12:01] LABS: CPK 44 U/L (0-200); TROPONIN I 0.03 NG/ML (<0.05)
[2017-01-08 12:04] LABS: CK-MB 2.5 NG/ML
[2017-01-08 18:01] LABS: CALCIUM, SERUM 8.5 MG/DL (8.5-10.4); CHLORIDE, SERUM 91 MMOL/L (96-112); CREATININE 3.99 MG/DL (0.70-1.30); GFR AFRICAN AMERICAN 16 ML/MIN (>=60); GFR NON AFRICAN AMERICAN 14 ML/MIN (>=60); GLUCOSE, SERUM 221 MG/DL (60-99); POTASSIUM, SERUM 5.2 MMOL/L (3.5-5.3); SODIUM, SERUM 136 MMOL/L (135-148)
[2017-01-08 18:02] LABS: CO2 (CARBON DIOXIDE) 30 MMOL/L (24-34)
[2017-01-08 18:03] LABS: BUN (BLOOD UREA NITROGEN) 81 MG/DL (6-23)
[2017-01-09 04:59] LABS: BASOPHILS 0.1 %; BASOPHILS ABSOLUTE 0.01 10/3/uL (0.0-0.16); EOSINOPHILS 0.2 %; EOSINOPHILS ABSOLUTE 0.03 10/3/uL (0.0-0.53); HEMATOCRIT 28.4 % (40.0-51.0); HEMOGLOBIN 9.1 g/dL (13.6-17.8); IMMATURE GRANULOCYTES 0.4 %; IMMATURE GRANULOCYTES ABSOLUTE 0.08 10/3/uL (0.0-0.11); LYMPHOCYTES 4.7 %; LYMPHOCYTES ABSOLUTE 0.86 10/3/uL (0.67-4.30); MEAN CORPUSCULAR HEMOGLOB 25.7 pg (26.0-34.0); MEAN CORPUSCULAR VOLUME 80.2 fL (80-100); MEAN PLATELET VOLUME 10.3 fL (9.2-13.0); MONOCYTES 6.9 %; MONOCYTES ABSOLUTE 1.27 10/3/uL (0.21-1.20); NEUTROPHILS 87.7 %; NEUTROPHILS ABSOLUTE 16.09 10/3/uL (2.02-8.40); PLATELET COUNT 223 10/3/uL (150-400); RBC DISTRIBUTION WIDTH 17.2 % (12.0-16.0); RED CELL COUNT 3.54 10/6/uL (4.7-6.1)
[2017-01-09 05:00] LABS: MANUAL DIFF NO %; WHITE BLOOD CELLS 18.3 10/3/uL (4.5-10.5)
[2017-01-09 05:13] LABS: CALCIUM, SERUM 8.8 MG/DL (8.5-10.4); CHLORIDE, SERUM 95 MMOL/L (96-112); CO2 (CARBON DIOXIDE) 29 MMOL/L (24-34); GFR AFRICAN AMERICAN 23 ML/MIN (>=60); GFR NON AFRICAN AMERICAN 20 ML/MIN (>=60); GLUCOSE, SERUM 207 MG/DL (60-99); PHOSPHORUS, SERUM 4.9 MG/DL (2.5-4.5); POTASSIUM, SERUM 4.9 MMOL/L (3.5-5.3); SODIUM, SERUM 136 MMOL/L (135-148)
[2017-01-09 05:14] LABS: BUN (BLOOD UREA NITROGEN) 71 MG/DL (6-23); CREATININE 3.04 MG/DL (0.70-1.30)
[2017-01-09 08:31] LABS: BE (BASE EXCESS) 5.5 MEQ/L (0 +/- 2.5); CARBOXYHEMOGLOBIN 0.8 % (0-3); HCO3 (ACTUAL BICARBONATE) 30.4 MEQ/L (23-27); INSTRUMENT SERIAL # 8083; METHEMOGLOBIN 0.4 % (0-3); O2 CONTENT 12.5 VOL% (18-24); OPERATOR ID 13715; PCO2 (CO2 TENSION) 46 MMHG (35-45); PO2 (O2 TENSION) 111 MMHG (79-93); SAMPLE Arterial; pH 7.44 (7.37-7.43)
[2017-01-09 08:32] LABS: ALLENS TEST Pos; MODE CMV; TIDAL VOLUME 400 ML
[2017-01-10 04:31] LABS: BASOPHILS 0.1 %; BASOPHILS ABSOLUTE 0.01 10/3/uL (0.0-0.16); EOSINOPHILS 0.6 %; EOSINOPHILS ABSOLUTE 0.08 10/3/uL (0.0-0.53); HEMATOCRIT 27.2 % (40.0-51.0); HEMOGLOBIN 8.6 g/dL (13.6-17.8); IMMATURE GRANULOCYTES 0.4 %; IMMATURE GRANULOCYTES ABSOLUTE 0.05 10/3/uL (0.0-0.11); LYMPHOCYTES ABSOLUTE 1.09 10/3/uL (0.67-4.30); MEAN CORPUS HGB CONC 31.6 g/dL (32.0-36.0); MEAN CORPUSCULAR HEMOGLOB 25.7 pg (26.0-34.0); MEAN CORPUSCULAR VOLUME 81.4 fL (80-100); MEAN PLATELET VOLUME 10.2 fL (9.2-13.0); MONOCYTES 7.4 %; MONOCYTES ABSOLUTE 1.01 10/3/uL (0.21-1.20); NEUTROPHILS 83.5 %; NEUTROPHILS ABSOLUTE 11.32 10/3/uL (2.02-8.40); PLATELET COUNT 186 10/3/uL (150-400); RBC DISTRIBUTION WIDTH 17.5 % (12.0-16.0); RED CELL COUNT 3.34 10/6/uL (4.7-6.1); WHITE BLOOD CELLS 13.6 10/3/uL (4.5-10.5)
[2017-01-10 04:33] LABS: MANUAL DIFF NO %
[2017-01-10 04:45] LABS: CALCIUM, SERUM 8.9 MG/DL (8.5-10.4); CHLORIDE, SERUM 102 MMOL/L (96-112); CO2 (CARBON DIOXIDE) 31 MMOL/L (24-34); GLUCOSE, SERUM 207 MG/DL (60-99); POTASSIUM, SERUM 4.7 MMOL/L (3.5-5.3); SODIUM, SERUM 142 MMOL/L (135-148)
[2017-01-10 04:51] LABS: BUN (BLOOD UREA NITROGEN) 52 MG/DL (6-23); CREATININE 1.67 MG/DL (0.70-1.30); GFR AFRICAN AMERICAN 47 ML/MIN (>=60); GFR NON AFRICAN AMERICAN 40 ML/MIN (>=60); PHOSPHORUS, SERUM 3.3 MG/DL (2.5-4.5)
[2017-01-11 04:21] LABS: BASOPHILS 0.1 %; BASOPHILS ABSOLUTE 0.01 10/3/uL (0.0-0.16); EOSINOPHILS 0.8 %; EOSINOPHILS ABSOLUTE 0.09 10/3/uL (0.0-0.53); HEMATOCRIT 27.3 % (40.0-51.0); HEMOGLOBIN 8.3 g/dL (13.6-17.8); IMMATURE GRANULOCYTES 0.5 %; IMMATURE GRANULOCYTES ABSOLUTE 0.05 10/3/uL (0.0-0.11); LYMPHOCYTES 7.9 %; LYMPHOCYTES ABSOLUTE 0.87 10/3/uL (0.67-4.30); MEAN CORPUS HGB CONC 30.4 g/dL (32.0-36.0); MEAN CORPUSCULAR HEMOGLOB 25.4 pg (26.0-34.0); MEAN CORPUSCULAR VOLUME 83.5 fL (80-100); MEAN PLATELET VOLUME 10.4 fL (9.2-13.0); MONOCYTES 9.1 %; NEUTROPHILS 81.6 %; NEUTROPHILS ABSOLUTE 8.96 10/3/uL (2.02-8.40); PLATELET COUNT 194 10/3/uL (150-400); RBC DISTRIBUTION WIDTH 17.5 % (12.0-16.0); RED CELL COUNT 3.27 10/6/uL (4.7-6.1)
[2017-01-11 04:23] LABS: MANUAL DIFF NO %
[2017-01-11 04:37] LABS: CHLORIDE, SERUM 106 MMOL/L (96-112); CO2 (CARBON DIOXIDE) 29 MMOL/L (24-34); GFR AFRICAN AMERICAN 75 ML/MIN (>=60); GFR NON AFRICAN AMERICAN 65 ML/MIN (>=60); GLUCOSE, SERUM 231 MG/DL (60-99); PHOSPHORUS, SERUM 3.2 MG/DL (2.5-4.5); POTASSIUM, SERUM 4.5 MMOL/L (3.5-5.3); SODIUM, SERUM 148 MMOL/L (135-148)
[2017-01-11 04:38] LABS: BUN (BLOOD UREA NITROGEN) 27 MG/DL (6-23); CREATININE 1.13 MG/DL (0.70-1.30)
[2017-01-12 06:49] LABS: BASOPHILS 0.1 %; BASOPHILS ABSOLUTE 0.01 10/3/uL (0.0-0.16); EOSINOPHILS 1.9 %; EOSINOPHILS ABSOLUTE 0.21 10/3/uL (0.0-0.53); HEMATOCRIT 28.9 % (40.0-51.0); HEMOGLOBIN 8.6 g/dL (13.6-17.8); IMMATURE GRANULOCYTES 0.6 %; IMMATURE GRANULOCYTES ABSOLUTE 0.07 10/3/uL (0.0-0.11); LYMPHOCYTES 7.1 %; LYMPHOCYTES ABSOLUTE 0.79 10/3/uL (0.67-4.30); MANUAL DIFF NO %; MEAN CORPUS HGB CONC 29.8 g/dL (32.0-36.0); MEAN CORPUSCULAR HEMOGLOB 25.5 pg (26.0-34.0); MEAN CORPUSCULAR VOLUME 85.8 fL (80-100); MEAN PLATELET VOLUME 10.5 fL (9.2-13.0); MONOCYTES 5.5 %; MONOCYTES ABSOLUTE 0.61 10/3/uL (0.21-1.20); NEUTROPHILS 84.8 %; NEUTROPHILS ABSOLUTE 9.41 10/3/uL (2.02-8.40); PLATELET COUNT 206 10/3/uL (150-400); RBC DISTRIBUTION WIDTH 17.2 % (12.0-16.0); RED CELL COUNT 3.37 10/6/uL (4.7-6.1); WHITE BLOOD CELLS 11.1 10/3/uL (4.5-10.5)
[2017-01-12 07:02] LABS: BUN (BLOOD UREA NITROGEN) 27 MG/DL (6-23); CALCIUM, SERUM 8.5 MG/DL (8.5-10.4); CHLORIDE, SERUM 109 MMOL/L (96-112); CO2 (CARBON DIOXIDE) 31 MMOL/L (24-34); CREATININE 1.07 MG/DL (0.70-1.30); GFR AFRICAN AMERICAN 80 ML/MIN (>=60); GFR NON AFRICAN AMERICAN 69 ML/MIN (>=60); GLUCOSE, SERUM 190 MG/DL (60-99); PHOSPHORUS, SERUM 3.6 MG/DL (2.5-4.5); SODIUM, SERUM 147 MMOL/L (135-148)
[2017-01-12 12:19] LABS: ALLENS TEST Pos; BE (BASE EXCESS) 6.2 MEQ/L (0 +/- 2.5); CARBOXYHEMOGLOBIN 1.1 % (0-3); DEVICE NRB; HCO3 (ACTUAL BICARBONATE) 33.1 MEQ/L (23-27); HEMOBLOGIN CONTENT 9.7 G/DL (14-18); INSTRUMENT SERIAL # 8083; METHEMOGLOBIN 0.2 % (0-3); O2 CONTENT 13.6 VOL% (18-24); OPERATOR ID 13715; PCO2 (CO2 TENSION) 61 MMHG (35-45); PO2 (O2 TENSION) 134 MMHG (79-93); SAMPLE Arterial; pH 7.35 (7.37-7.43)
[2017-01-12 19:19] LABS: CALCIUM, SERUM 9.1 MG/DL (8.5-10.4); CHLORIDE, SERUM 104 MMOL/L (96-112); CO2 (CARBON DIOXIDE) 32 MMOL/L (24-34); CREATININE 1.28 MG/DL (0.70-1.30); GFR AFRICAN AMERICAN 64 ML/MIN (>=60); GFR NON AFRICAN AMERICAN 56 ML/MIN (>=60); GLUCOSE, SERUM 198 MG/DL (60-99); POTASSIUM, SERUM 4.3 MMOL/L (3.5-5.3); SODIUM, SERUM 146 MMOL/L (135-148)
[2017-01-12 19:22] LABS: BUN (BLOOD UREA NITROGEN) 33 MG/DL (6-23)
[2017-01-13 16:05] LABS: BASOPHILS 0.2 %; BASOPHILS ABSOLUTE 0.02 10/3/uL (0.0-0.16); EOSINOPHILS 4.9 %; EOSINOPHILS ABSOLUTE 0.53 10/3/uL (0.0-0.53); HEMOGLOBIN 7.8 g/dL (13.6-17.8); IMMATURE GRANULOCYTES 0.3 %; IMMATURE GRANULOCYTES ABSOLUTE 0.03 10/3/uL (0.0-0.11); LYMPHOCYTES 12.9 %; MEAN CORPUS HGB CONC 30.6 g/dL (32.0-36.0); MEAN CORPUSCULAR HEMOGLOB 25.4 pg (26.0-34.0); MEAN PLATELET VOLUME 9.6 fL (9.2-13.0); MONOCYTES 8.9 %; MONOCYTES ABSOLUTE 0.96 10/3/uL (0.21-1.20); NEUTROPHILS 72.8 %; NEUTROPHILS ABSOLUTE 7.88 10/3/uL (2.02-8.40); PLATELET COUNT 215 10/3/uL (150-400); RBC DISTRIBUTION WIDTH 16.9 % (12.0-16.0); RED CELL COUNT 3.07 10/6/uL (4.7-6.1); WHITE BLOOD CELLS 10.8 10/3/uL (4.5-10.5)
[2017-01-13 16:06] LABS: HEMATOCRIT 25.5 % (40.0-51.0); MANUAL DIFF NO %; MEAN CORPUSCULAR VOLUME 83.1 fL (80-100)
[2017-01-14 05:24] LABS: BASOPHILS 0.2 %; BASOPHILS ABSOLUTE 0.03 10/3/uL (0.0-0.16); EOSINOPHILS 3.9 %; EOSINOPHILS ABSOLUTE 0.49 10/3/uL (0.0-0.53); HEMATOCRIT 26.5 % (40.0-51.0); HEMOGLOBIN 8.2 g/dL (13.6-17.8); IMMATURE GRANULOCYTES 0.2 %; IMMATURE GRANULOCYTES ABSOLUTE 0.03 10/3/uL (0.0-0.11); LYMPHOCYTES 12.7 %; LYMPHOCYTES ABSOLUTE 1.58 10/3/uL (0.67-4.30); MEAN CORPUS HGB CONC 30.9 g/dL (32.0-36.0); MEAN CORPUSCULAR HEMOGLOB 25.3 pg (26.0-34.0); MEAN CORPUSCULAR VOLUME 81.8 fL (80-100); MEAN PLATELET VOLUME 10.1 fL (9.2-13.0); MONOCYTES 5.3 %; MONOCYTES ABSOLUTE 0.66 10/3/uL (0.21-1.20); NEUTROPHILS 77.7 %; NEUTROPHILS ABSOLUTE 9.65 10/3/uL (2.02-8.40); PLATELET COUNT 242 10/3/uL (150-400); RBC DISTRIBUTION WIDTH 16.7 % (12.0-16.0); RED CELL COUNT 3.24 10/6/uL (4.7-6.1); WHITE BLOOD CELLS 12.4 10/3/uL (4.5-10.5)
[2017-01-14 05:25] LABS: MANUAL DIFF NO %
[2017-01-14 05:40] LABS: A/G RATIO 0.7 (0.7-1.9); ALBUMIN 2.8 G/DL (3.5-5.0); CALCIUM, SERUM 8.4 MG/DL (8.5-10.4); CHLORIDE, SERUM 98 MMOL/L (96-112); CO2 (CARBON DIOXIDE) 33 MMOL/L (24-34); GFR AFRICAN AMERICAN 63 ML/MIN (>=60); GFR NON AFRICAN AMERICAN 55 ML/MIN (>=60); GLOBULIN 4.1 G/DL (2.5-4.1); GLUCOSE, SERUM 182 MG/DL (60-99); POTASSIUM, SERUM 3.6 MMOL/L (3.5-5.3); SGOT(AST) 36 U/L (5-40); SGPT(ALT) 72 U/L (5-65); SODIUM, SERUM 140 MMOL/L (135-148); TOTAL BILIRUBIN 0.8 MG/DL (0-1.2); TOTAL PROTEIN 6.9 G/DL (6.0-8.5)
[2017-01-14 05:41] LABS: ALKALINE PHOSPHATASE 109 U/L (45-117); BUN (BLOOD UREA NITROGEN) 38 MG/DL (6-23)
[2017-01-14 12:29] LABS: BE (BASE EXCESS) 8.5 MEQ/L (0 +/- 2.5); HCO3 (ACTUAL BICARBONATE) 32.3 MEQ/L (23-27); INSTRUMENT SERIAL # 8083; PCO2 (CO2 TENSION) 42 MMHG (35-45); PO2 (O2 TENSION) 112 MMHG (79-93); pH 7.51 (7.37-7.43)
[2017-01-14 12:30] LABS: ALLENS TEST Pos; BIPAP 18/5 cm.H2O; CARBOXYHEMOGLOBIN 0.7 % (0-3); HEMOBLOGIN CONTENT 9.6 G/DL (14-18); METHEMOGLOBIN 0.3 % (0-3); O2 CONTENT 13.3 VOL% (18-24); OPERATOR ID 32186; SAMPLE Arterial
[2017-01-15 04:21] LABS: BE (BASE EXCESS) 4.2 MEQ/L (0 +/- 2.5); HCO3 (ACTUAL BICARBONATE) 28.9 MEQ/L (23-27); INSTRUMENT SERIAL # 8083; PCO2 (CO2 TENSION) 44 MMHG (35-45); PO2 (O2 TENSION) 136 MMHG (79-93); pH 7.44 (7.37-7.43)
[2017-01-15 04:22] LABS: ALLENS TEST Pos; BIPAP 18/5 cm.H2O; CARBOXYHEMOGLOBIN 1.3 % (0-3); HEMOBLOGIN CONTENT 8.2 G/DL (14-18); METHEMOGLOBIN 0.5 % (0-3); O2 CONTENT 11.5 VOL% (18-24); OPERATOR ID 14661; SAMPLE Arterial
[2017-01-15 04:51] LABS: BASOPHILS 0.2 %; BASOPHILS ABSOLUTE 0.02 10/3/uL (0.0-0.16); EOSINOPHILS 3.1 %; EOSINOPHILS ABSOLUTE 0.33 10/3/uL (0.0-0.53); HEMATOCRIT 25.1 % (40.0-51.0); HEMOGLOBIN 7.6 g/dL (13.6-17.8); IMMATURE GRANULOCYTES 0.3 %; IMMATURE GRANULOCYTES ABSOLUTE 0.03 10/3/uL (0.0-0.11); LYMPHOCYTES 11.8 %; LYMPHOCYTES ABSOLUTE 1.26 10/3/uL (0.67-4.30); MEAN CORPUS HGB CONC 30.3 g/dL (32.0-36.0); MEAN CORPUSCULAR HEMOGLOB 25.1 pg (26.0-34.0); MEAN CORPUSCULAR VOLUME 82.8 fL (80-100); MEAN PLATELET VOLUME 9.8 fL (9.2-13.0); MONOCYTES 5.7 %; MONOCYTES ABSOLUTE 0.61 10/3/uL (0.21-1.20); NEUTROPHILS 78.9 %; NEUTROPHILS ABSOLUTE 8.46 10/3/uL (2.02-8.40); PLATELET COUNT 209 10/3/uL (150-400); RBC DISTRIBUTION WIDTH 16.7 % (12.0-16.0); RED CELL COUNT 3.03 10/6/uL (4.7-6.1); WHITE BLOOD CELLS 10.7 10/3/uL (4.5-10.5)
[2017-01-15 04:58] LABS: MANUAL DIFF NO %
[2017-01-15 05:10] LABS: CALCIUM, SERUM 7.9 MG/DL (8.5-10.4); CHLORIDE, SERUM 99 MMOL/L (96-112); CO2 (CARBON DIOXIDE) 31 MMOL/L (24-34); CREATININE 1.04 MG/DL (0.70-1.30); GFR AFRICAN AMERICAN 83 ML/MIN (>=60); GFR NON AFRICAN AMERICAN 71 ML/MIN (>=60); GLUCOSE, SERUM 168 MG/DL (60-99); POTASSIUM, SERUM 3.6 MMOL/L (3.5-5.3); SODIUM, SERUM 142 MMOL/L (135-148)
[2017-01-15 05:11] LABS: BUN (BLOOD UREA NITROGEN) 28 MG/DL (6-23)
[2017-01-15 05:51] LABS: PROCALCITONIN 0.11 ng/mL (<0.5)
[2017-01-15 09:25] LABS: ALLENS TEST Pos; BE (BASE EXCESS) 3.9 MEQ/L (0 +/- 2.5); CARBOXYHEMOGLOBIN 1.4 % (0-3); HCO3 (ACTUAL BICARBONATE) 28.2 MEQ/L (23-27); HEMOBLOGIN CONTENT 8.4 G/DL (14-18); INSTRUMENT SERIAL # 8083; METHEMOGLOBIN 0.2 % (0-3); O2 CONTENT 11.3 VOL% (18-24); PCO2 (CO2 TENSION) 41 MMHG (35-45); PO2 (O2 TENSION) 86 MMHG (79-93); SAMPLE Arterial; pH 7.45 (7.37-7.43)
[2017-01-16 05:05] LABS: BASOPHILS 0.2 %; BASOPHILS ABSOLUTE 0.02 10/3/uL (0.0-0.16); EOSINOPHILS 3.7 %; EOSINOPHILS ABSOLUTE 0.42 10/3/uL (0.0-0.53); HEMATOCRIT 24.4 % (40.0-51.0); HEMOGLOBIN 7.6 g/dL (13.6-17.8); IMMATURE GRANULOCYTES 0.3 %; IMMATURE GRANULOCYTES ABSOLUTE 0.04 10/3/uL (0.0-0.11); LYMPHOCYTES 13.2 %; LYMPHOCYTES ABSOLUTE 1.52 10/3/uL (0.67-4.30); MEAN CORPUS HGB CONC 31.1 g/dL (32.0-36.0); MEAN CORPUSCULAR HEMOGLOB 25.9 pg (26.0-34.0); MEAN PLATELET VOLUME 10.3 fL (9.2-13.0); MONOCYTES 6.2 %; MONOCYTES ABSOLUTE 0.71 10/3/uL (0.21-1.20); NEUTROPHILS 76.4 %; NEUTROPHILS ABSOLUTE 8.77 10/3/uL (2.02-8.40); PLATELET COUNT 209 10/3/uL (150-400); RBC DISTRIBUTION WIDTH 16.8 % (12.0-16.0); RED CELL COUNT 2.94 10/6/uL (4.7-6.1); WHITE BLOOD CELLS 11.5 10/3/uL (4.5-10.5)
[2017-01-16 05:08] LABS: MANUAL DIFF NO %
[2017-01-16 05:14] LABS: BUN (BLOOD UREA NITROGEN) 21 MG/DL (6-23); CHLORIDE, SERUM 105 MMOL/L (96-112); CO2 (CARBON DIOXIDE) 30 MMOL/L (24-34); CREATININE 0.95 MG/DL (0.70-1.30); GFR AFRICAN AMERICAN 92 ML/MIN (>=60); GFR NON AFRICAN AMERICAN 80 ML/MIN (>=60); GLUCOSE, SERUM 152 MG/DL (60-99); SODIUM, SERUM 143 MMOL/L (135-148)
[2017-01-16 09:01] LABS: ALLENS TEST Pos; BE (BASE EXCESS) 1.6 MEQ/L (0 +/- 2.5); CARBOXYHEMOGLOBIN 0.9 % (0-3); DEVICE NC; HCO3 (ACTUAL BICARBONATE) 25.7 MEQ/L (23-27); HEMOBLOGIN CONTENT 8.3 G/DL (14-18); INSTRUMENT SERIAL # 8083; METHEMOGLOBIN 0.2 % (0-3); O2 CONTENT 11.2 VOL% (18-24); PCO2 (CO2 TENSION) 38 MMHG (35-45); PO2 (O2 TENSION) 81 MMHG (79-93); SAMPLE Arterial; pH 7.45 (7.37-7.43)
[2017-01-17 04:24] LABS: ALLENS TEST Pos; BE (BASE EXCESS) 0.8 MEQ/L (0 +/- 2.5); CARBOXYHEMOGLOBIN 1.3 % (0-3); DEVICE NC; HCO3 (ACTUAL BICARBONATE) 25.5 MEQ/L (23-27); HEMOBLOGIN CONTENT 7.5 G/DL (14-18); INSTRUMENT SERIAL # 8083; METHEMOGLOBIN 0.5 % (0-3); O2 CONTENT 10.2 VOL% (18-24); OPERATOR ID 30013; PCO2 (CO2 TENSION) 41 MMHG (35-45); PO2 (O2 TENSION) 91 MMHG (79-93); SAMPLE Arterial; pH 7.41 (7.37-7.43)
[2017-01-17 06:02] LABS: BASOPHILS 0.2 %; BASOPHILS ABSOLUTE 0.02 10/3/uL (0.0-0.16); EOSINOPHILS 4.3 %; EOSINOPHILS ABSOLUTE 0.45 10/3/uL (0.0-0.53); HEMATOCRIT 24.7 % (40.0-51.0); HEMOGLOBIN 7.6 g/dL (13.6-17.8); IMMATURE GRANULOCYTES 0.7 %; IMMATURE GRANULOCYTES ABSOLUTE 0.07 10/3/uL (0.0-0.11); LYMPHOCYTES 16.3 %; LYMPHOCYTES ABSOLUTE 1.72 10/3/uL (0.67-4.30); MANUAL DIFF NO %; MEAN CORPUS HGB CONC 30.8 g/dL (32.0-36.0); MEAN CORPUSCULAR HEMOGLOB 25.8 pg (26.0-34.0); MEAN CORPUSCULAR VOLUME 83.7 fL (80-100); MONOCYTES 6.1 %; MONOCYTES ABSOLUTE 0.64 10/3/uL (0.21-1.20); NEUTROPHILS 72.4 %; NEUTROPHILS ABSOLUTE 7.62 10/3/uL (2.02-8.40); PLATELET COUNT 196 10/3/uL (150-400); RBC DISTRIBUTION WIDTH 16.9 % (12.0-16.0); RED CELL COUNT 2.95 10/6/uL (4.7-6.1); WHITE BLOOD CELLS 10.5 10/3/uL (4.5-10.5)
[2017-01-17 06:15] LABS: CALCIUM, SERUM 7.6 MG/DL (8.5-10.4); CHLORIDE, SERUM 105 MMOL/L (96-112); CREATININE 0.83 MG/DL (0.70-1.30); GFR AFRICAN AMERICAN 102 ML/MIN (>=60); GFR NON AFRICAN AMERICAN 88 ML/MIN (>=60); GLUCOSE, SERUM 176 MG/DL (60-99); POTASSIUM, SERUM 3.8 MMOL/L (3.5-5.3); SODIUM, SERUM 140 MMOL/L (135-148)
[2017-01-17 06:20] LABS: BUN (BLOOD UREA NITROGEN) 15 MG/DL (6-23); CO2 (CARBON DIOXIDE) 25 MMOL/L (24-34)
[2017-01-18 04:37] LABS: BASOPHILS 0.2 %; BASOPHILS ABSOLUTE 0.02 10/3/uL (0.0-0.16); EOSINOPHILS ABSOLUTE 0.22 10/3/uL (0.0-0.53); HEMATOCRIT 24.4 % (40.0-51.0); HEMOGLOBIN 7.6 g/dL (13.6-17.8); IMMATURE GRANULOCYTES 0.5 %; IMMATURE GRANULOCYTES ABSOLUTE 0.06 10/3/uL (0.0-0.11); LYMPHOCYTES 11.4 %; LYMPHOCYTES ABSOLUTE 1.25 10/3/uL (0.67-4.30); MEAN CORPUS HGB CONC 31.1 g/dL (32.0-36.0); MEAN CORPUSCULAR HEMOGLOB 25.9 pg (26.0-34.0); MEAN CORPUSCULAR VOLUME 83.3 fL (80-100); MEAN PLATELET VOLUME 10.1 fL (9.2-13.0); MONOCYTES 7.5 %; MONOCYTES ABSOLUTE 0.82 10/3/uL (0.21-1.20); NEUTROPHILS 78.4 %; NEUTROPHILS ABSOLUTE 8.57 10/3/uL (2.02-8.40); PLATELET COUNT 189 10/3/uL (150-400); RBC DISTRIBUTION WIDTH 17.3 % (12.0-16.0); RED CELL COUNT 2.93 10/6/uL (4.7-6.1); WHITE BLOOD CELLS 10.9 10/3/uL (4.5-10.5)
[2017-01-18 04:39] LABS: MANUAL DIFF NO %
[2017-01-18 04:59] LABS: ALBUMIN 2.6 G/DL (3.5-5.0); BUN (BLOOD UREA NITROGEN) 12 MG/DL (6-23); CALCIUM, SERUM 8.1 MG/DL (8.5-10.4); CHLORIDE, SERUM 106 MMOL/L (96-112); CO2 (CARBON DIOXIDE) 24 MMOL/L (24-34); CREATININE 0.76 MG/DL (0.70-1.30); GFR AFRICAN AMERICAN 106 ML/MIN (>=60); GFR NON AFRICAN AMERICAN 91 ML/MIN (>=60); POTASSIUM, SERUM 4.2 MMOL/L (3.5-5.3); SODIUM, SERUM 140 MMOL/L (135-148)
[2017-01-18 05:07] LABS: GLUCOSE, SERUM 213 MG/DL (60-99); PHOSPHORUS, SERUM 1.9 MG/DL (2.5-4.5)
[2017-01-18 11:38] LABS: ALLENS TEST Pos; BE (BASE EXCESS) -0.9 MEQ/L (0 +/- 2.5); CARBOXYHEMOGLOBIN 1.5 % (0-3); HCO3 (ACTUAL BICARBONATE) 24.4 MEQ/L (23-27); HEMOBLOGIN CONTENT 8.2 G/DL (14-18); INSTRUMENT SERIAL # 8083; METHEMOGLOBIN 0.2 % (0-3); O2 CONTENT 11.6 VOL% (18-24); OPERATOR ID 32199; PCO2 (CO2 TENSION) 43 MMHG (35-45); PO2 (O2 TENSION) 142 MMHG (79-93); SAMPLE Arterial; pH 7.37 (7.37-7.43)
[2017-01-19 04:55] LABS: BASOPHILS 0.2 %; BASOPHILS ABSOLUTE 0.02 10/3/uL (0.0-0.16); EOSINOPHILS 2.2 %; EOSINOPHILS ABSOLUTE 0.23 10/3/uL (0.0-0.53); HEMATOCRIT 25.5 % (40.0-51.0); HEMOGLOBIN 7.9 g/dL (13.6-17.8); IMMATURE GRANULOCYTES 0.6 %; IMMATURE GRANULOCYTES ABSOLUTE 0.06 10/3/uL (0.0-0.11); LYMPHOCYTES 12.5 %; LYMPHOCYTES ABSOLUTE 1.31 10/3/uL (0.67-4.30); MEAN CORPUSCULAR HEMOGLOB 26.5 pg (26.0-34.0); MEAN CORPUSCULAR VOLUME 85.6 fL (80-100); MEAN PLATELET VOLUME 10.2 fL (9.2-13.0); MONOCYTES 6.8 %; MONOCYTES ABSOLUTE 0.71 10/3/uL (0.21-1.20); NEUTROPHILS 77.7 %; NEUTROPHILS ABSOLUTE 8.13 10/3/uL (2.02-8.40); PLATELET COUNT 202 10/3/uL (150-400); RBC DISTRIBUTION WIDTH 18.4 % (12.0-16.0); RED CELL COUNT 2.98 10/6/uL (4.7-6.1); WHITE BLOOD CELLS 10.5 10/3/uL (4.5-10.5)
[2017-01-19 05:03] LABS: BUN (BLOOD UREA NITROGEN) 10 MG/DL (6-23); CHLORIDE, SERUM 106 MMOL/L (96-112); CO2 (CARBON DIOXIDE) 26 MMOL/L (24-34); CREATININE 0.82 MG/DL (0.70-1.30); GFR AFRICAN AMERICAN 102 ML/MIN (>=60); GFR NON AFRICAN AMERICAN 88 ML/MIN (>=60); MANUAL DIFF NO %; PHOSPHORUS, SERUM 2.1 MG/DL (2.5-4.5); POTASSIUM, SERUM 4.3 MMOL/L (3.5-5.3); SODIUM, SERUM 141 MMOL/L (135-148)
[2017-01-19 05:06] LABS: GLUCOSE, SERUM 160 MG/DL (60-99); THEOPHYLLINE < 2.0 MCG/ML (8.0-15.0)
[2017-01-21 07:50] LABS: BASOPHILS 0.2 %; BASOPHILS ABSOLUTE 0.02 10/3/uL (0.0-0.16); EOSINOPHILS 3.1 %; EOSINOPHILS ABSOLUTE 0.26 10/3/uL (0.0-0.53); HEMATOCRIT 26.6 % (40.0-51.0); HEMOGLOBIN 8.1 g/dL (13.6-17.8); IMMATURE GRANULOCYTES 0.6 %; IMMATURE GRANULOCYTES ABSOLUTE 0.05 10/3/uL (0.0-0.11); LYMPHOCYTES 13.1 %; LYMPHOCYTES ABSOLUTE 1.12 10/3/uL (0.67-4.30); MEAN CORPUS HGB CONC 30.5 g/dL (32.0-36.0); MEAN CORPUSCULAR HEMOGLOB 25.9 pg (26.0-34.0); MEAN PLATELET VOLUME 10.4 fL (9.2-13.0); MONOCYTES 6.7 %; MONOCYTES ABSOLUTE 0.57 10/3/uL (0.21-1.20); NEUTROPHILS 76.3 %; PLATELET COUNT 189 10/3/uL (150-400); RBC DISTRIBUTION WIDTH 19.2 % (12.0-16.0); RED CELL COUNT 3.13 10/6/uL (4.7-6.1); WHITE BLOOD CELLS 8.5 10/3/uL (4.5-10.5)
[2017-01-21 07:51] LABS: MANUAL DIFF NO %
[2017-01-21 08:00] LABS: BUN (BLOOD UREA NITROGEN) 11 MG/DL (6-23); CALCIUM, SERUM 8.3 MG/DL (8.5-10.4); CHLORIDE, SERUM 106 MMOL/L (96-112); CO2 (CARBON DIOXIDE) 28 MMOL/L (24-34); CREATININE 0.89 MG/DL (0.70-1.30); GFR AFRICAN AMERICAN 99 ML/MIN (>=60); GFR NON AFRICAN AMERICAN 85 ML/MIN (>=60); POTASSIUM, SERUM 4.3 MMOL/L (3.5-5.3); SODIUM, SERUM 142 MMOL/L (135-148)
[2017-01-21 08:01] LABS: GLUCOSE, SERUM 121 MG/DL (60-99)
[2017-01-21] MEDS ORDERED: FOLIC PO (11:30)
[2017-01-21] MEDS ORDERED: DSS PO (11:30)
[2017-01-21] MEDS ORDERED: PULRESP1 INH (11:32)
[2017-01-21] MEDS ORDERED: SEROQUEL25 PO (11:32)
[2017-01-21] MEDS ORDERED: DUONEB INH (11:33)
== END 2017-01-21 18:02 | disposition hospice, home (50) | DRG 987 ==
LOC: ER 10:26 → MIC 14:41 → 1SO 01-11 23:13 → IMCU 01-13 20:51 → 7NO 01-20 15:25
PROVIDERS: Emergency Medicine; Hospitalist; Internal Medicine; Internal Medicine Nephrology; Internal Medicine Pulmonary Disease; Radiology Radiation Oncology
PROC: 0T9B70Z Drainage of Bladder with Drainage Device, Via Natural or Artificial Opening (ICD-10-PCS; principal; 2017-01-07)
PROC: 0T7D8ZZ Dilation of Urethra, Via Natural or Artificial Opening Endoscopic (ICD-10-PCS; 2017-01-07)
PROC: 5A1945Z Respiratory Ventilation, 24-96 Consecutive Hours (ICD-10-PCS; 2017-01-07)
PROC: 02HV33Z Insertion of Infusion Device into Superior Vena Cava, Percutaneous Approach (ICD-10-PCS; 2017-01-07)
PROC: 0BH17EZ Insertion of Endotracheal Airway into Trachea, Via Natural or Artificial Opening (ICD-10-PCS; 2017-01-07)
PROC: 0T5B8ZZ Destruction of Bladder, Via Natural or Artificial Opening Endoscopic (ICD-10-PCS; 2017-01-08)
PROC: 0TCB8ZZ Extirpation of Matter from Bladder, Via Natural or Artificial Opening Endoscopic (ICD-10-PCS; 2017-01-08)
DX: J96.21 Acute and chronic respiratory failure with hypoxia (principal); R57.8 Other shock; N17.9 Acute kidney failure, unspecified; J18.9 Pneumonia, unspecified organism; G93.40 Encephalopathy, unspecified; J90 Pleural effusion, not elsewhere classified; I13.0 Hypertensive heart and chronic kidney disease with heart failure and stage 1 through stage 4 chronic kidney disease, or unspecified chronic kidney disease; I50.32 Chronic diastolic (congestive) heart failure; F03.90 Unspecified dementia, unspecified severity, without behavioral disturbance, psychotic disturbance, mood disturbance, and anxiety; Z68.41 Body mass index [BMI] 40.0-44.9, adult; I31.3 Pericardial effusion (noninflammatory); Z68.43 Body mass index [BMI] 50.0-59.9, adult; J98.11 Atelectasis; E87.1 Hypo-osmolality and hyponatremia; N39.0 Urinary tract infection, site not specified; E66.2 Morbid (severe) obesity with alveolar hypoventilation; J44.9 Chronic obstructive pulmonary disease, unspecified; Z51.5 Encounter for palliative care; I27.81 Cor pulmonale (chronic); D50.9 Iron deficiency anemia, unspecified; B95.62 Methicillin resistant Staphylococcus aureus infection as the cause of diseases classified elsewhere; B95.2 Enterococcus as the cause of diseases classified elsewhere; R31.0 Gross hematuria; I87.2 Venous insufficiency (chronic) (peripheral); J96.22 Acute and chronic respiratory failure with hypercapnia; E11.22 Type 2 diabetes mellitus with diabetic chronic kidney disease; G47.33 Obstructive sleep apnea (adult) (pediatric); E78.5 Hyperlipidemia, unspecified; I48.2 Chronic atrial fibrillation; E87.5 Hyperkalemia; N18.3 Chronic kidney disease, stage 3 (moderate); Z79.84 Long term (current) use of oral hypoglycemic drugs; Z80.3 Family history of malignant neoplasm of breast; Z80.0 Family history of malignant neoplasm of digestive organs; Z82.49 Family history of ischemic heart disease and other diseases of the circulatory system; Z79.4 Long term (current) use of insulin; Z99.81 Dependence on supplemental oxygen; Z79.899 Other long term (current) drug therapy; Z87.440 Personal history of urinary (tract) infections; Z66 Do not resuscitate; Z86.14 Personal history of Methicillin resistant Staphylococcus aureus infection
CPT/HCPCS: 31720; 36415; 36569; 36600; 71010; 71250; 74000; 74176; 80048; 80053; 80069; 80198; 80202; 81001; 82140; 82330; 82533; 82550; 82553; 82803; 82805; 82947; 82962; 83036; 83605; 83735; 83880; 84100; 84132; 84145; 84295; 84439; 84443; 84484; 85014; 85025; 85610; 85730; 86850; 86900; 86901; 87040; 87070; 87205; 87641; 93005; 93321; 94002; 94003; 94640; 94660; 96365; 96375; 97110-GO; 97110-GP; 97162-GP; 97164-GP; 97167-GO; 97530-GP; 99291; A9270-GY; C1751; C1769; C8924; C9113; J0330; J0360; J1120; J1205; J2543; J2916; J3370; J3486; Q9957